=== PATIENT | male | born 1965 | race Caucasian/White ===

== ENCOUNTER 2018-02-25 14:57 | Emergency (ER) | payer OTHER ==
[2018-02-25] MEDS ORDERED: SODIUM CHLORIDE 0.9% 1,000 ML IV STA (15:02)
--- NOTE | 2018-02-25 15:04 | ED ---
General Adult HPI - General Source: RN notes reviewed <Martir Posadas - Last Filed: 02/25/18 15:49> <Ace Llamas - Last Filed: 03/28/18 06:39> - General Stated complaint: Etoh Time Seen by Provider: 02/25/18 14:57 - History of Present Illness Initial comments: This a 52-year-old male who presents emergency department highly intoxicated. EMS was called to scene because the patient was unresponsive at the posterolateral however when they got there patient was alert and oriented 3 but a Phone asleep and so they brought him to the emergency department. Patient has no complaints at this time. Patient states she does have chronic back and chest pain at times. Patient states she's not experiencing any of that right now. Patient wants to go home and continue drinking. Patient states he is not suicidal or homicidal. Patient denies headache patient denies any numbness weakness. Patient denies abdominal pain patient denies nausea vomiting diarrhea. Patient missed a heavy drinking today and admits to having marijuana in his sock. (Martir Posadas) - Related Data Previous Rx's Medication Instructions Recorded Diazepam [Valium] 5 mg PO BID #4 tab 03/11/18 Ipratropium/Albuterol Sulfate 2 puff INHALATION QID #1 inhaler 03/11/18 [Combivent Respimat Inhaler] Naltrexone HCl [Revia] 50 mg PO DAILY #20 tablet 03/11/18 Nicotine 21Mg/24Hr Patch [Habitrol] 1 patch TRANSDERM DAILY #30 patch 03/11/18 Thiamine [Vitamin B-1] 100 mg PO BID@1200,1700 #60 tab 03/11/18 predniSONE 10 mg PO DAILY #30 tab 03/11/18 Allergies Allergy/AdvReac Type Severity Reaction Status Date / Time No Known Allergies Allergy Verified 03/10/18 10:57 Review of Systems ROS Other: All systems not noted in ROS Statement are negative. <Martir Posadas - Last Filed: 02/25/18 15:49> ROS Other: All systems not noted in ROS Statement are negative. <Ace Llamas - Last Filed: 03/28/18 06:39> ROS Statement: Those systems with pertinent positive or pertinent negative responses have been documented in the HPI. Past Medical History Past Medical History: Hyperlipidemia, Hypertension Additional Past Medical History / Comment(s): Depression, alcoholism History of Any Multi-Drug Resistant Organisms: None Reported Past Surgical History: Appendectomy Past Anesthesia/Blood Transfusion Reactions: No Reported Reaction Past Psychological History: Anxiety, Depression, Panic Disorder Smoking Status: Current every day smoker Past Alcohol Use History: Abuse, Daily Past Drug Use History: Marijuana <Martir Posadas - Last Filed: 02/25/18 15:49> General Exam <Martir Posadas - Last Filed: 02/25/18 15:49> <Ace Llamas - Last Filed: 03/28/18 06:39> - General Exam Comments Initial Comments: GENERAL: Patient is well-developed and well-nourished. Patient is nontoxic and well- hydrated and is in no acute distress. ENT: Neck is soft and supple. No significant lymphadenopathy is noted. Oropharynx is clear. Moist mucous membranes. Neck has full range of motion without eliciting any pain. EYES: The sclera were anicteric and conjunctiva were pink and moist. Extraocular movements were intact and pupils were equal round and reactive to light. Eyelids were unremarkable. PULMONARY: Unlabored respirations. Good breath sounds bilaterally. No audible rales rhonchi or wheezing was noted. CARDIOVASCULAR: There is a regular rate and rhythm without any murmurs gallops or rubs. ABDOMEN: Soft and nontender with normal bowel sounds. No palpable organomegaly was noted. There is no palpable pulsatile mass. SKIN: Skin is clear with no lesions or rashes and otherwise unremarkable. NEUROLOGIC: Patient is alert and oriented x3. Cranial nerves II through XII are grossly intact. Motor and sensory are also intact. Normal speech, volume and content. Symmetrical smile. MUSCULOSKELETAL: Normal extremities with adequate strength and full range of motion. LYMPHATICS: No significant lymphadenopathy is noted PSYCHIATRIC: Normal psychiatric evaluation. Patient denies suicidal or homicidal ideations. Patient is uncooperative because he would like to go home. (Martir Posadas) Vital Signs 02/25/18 02/25/18 02/25/18 15:00 16:48 18:03 Temperature 98 F Pulse Rate 99 77 86 Respiratory 20 16 18 Rate Blood Pressure 154/89 100/56 103/57 O2 Sat by Pulse 95 94 L 95 Oximetry 02/25/18 02/25/18 19:13 22:03 Temperature 98 F Pulse Rate 63 84 Respiratory 18 18 Rate Blood Pressure 112/60 120/84 O2 Sat by Pulse 96 98 Oximetry Medical Decision Making - Lab Data Result diagrams: 02/25/18 15:10 <Martir Posadas - Last Filed: 02/25/18 15:49> - Lab Data Result diagrams: 02/25/18 15:10 02/25/18 15:10 <Ace Llamas - Last Filed: 03/28/18 06:39> - Medical Decision Making EKG shows normal sinus rhythm at 85 bpm DE interval is 140 [place] 98 QT interval 356 QTC is 423. Patient's EKG shows no ST segment elevation or depression or T wave abnormalities are noted. Dr. Diaz will be taking care of this patient at 5 PM (Martir Posadas) Patient observed in emergency department until clinically sober. He has tolerated oral intake. Able to ambulate. Denies any suicidal or homicidal ideation or any hallucinations. (Ace Llamas) - Lab Data Lab Results 02/25/18 02/25/18 02/25/18 Range/Units 15:10 15:10 15:10 WBC 8.6 (3.8-10.6) k/uL RBC 4.47 (4.30-5.90) m/uL Hgb 14.2 (13.0-17.5) gm/dL Hct 42.5 (39.0-53.0) % MCV 95.1 (80.0-100.0) fL MCH 31.8 (25.0-35.0) pg MCHC 33.4 (31.0-37.0) g/dL RDW 13.1 (11.5-15.5) % Plt Count 233 (150-450) k/uL Neutrophils % 72 % Lymphocytes % 19 % Monocytes % 5 % Eosinophils % 2 % Basophils % 0 % Neutrophils # 6.1 (1.3-7.7) k/uL Lymphocytes # 1.6 (1.0-4.8) k/uL Monocytes # 0.5 (0-1.0) k/uL Eosinophils # 0.2 (0-0.7) k/uL Basophils # 0.0 (0-0.2) k/uL PT (9.0-12.0) sec INR (<1.2) APTT (22.0-30.0) sec Sodium 144 (137-145) mmol/L Potassium 4.6 (3.5-5.1) mmol/L Chloride 106 (98-107) mmol/L Carbon Dioxide 22 (22-30) mmol/L Anion Gap 16 mmol/L BUN 8 L (9-20) mg/dL Creatinine 0.75 (0.66-1.25) mg/dL Est GFR (CKD-EPI)AfAm >90 (>60 ml/min/1.73 sqM) Est GFR (CKD-EPI)NonAf >90 (>60 ml/min/1.73 sqM) Glucose 95 (74-99) mg/dL Calcium 9.0 (8.4-10.2) mg/dL Magnesium 2.3 (1.6-2.3) mg/dL Total Bilirubin 0.3 (0.2-1.3) mg/dL AST 22 (17-59) U/L ALT 17 L (21-72) U/L Alkaline Phosphatase 67 (38-126) U/L Total Creatine Kinase 91 (55-170) U/L CK-MB (CK-2) 0.6 (0.0-2.4) ng/mL CK-MB (CK-2) Rel Index 0.7 Troponin I <0.012 (0.000-0.034) ng/mL Total Protein 7.1 (6.3-8.2) g/dL Albumin 4.6 (3.5-5.0) g/dL /03/10 Range/Units 15:10 WBC (3.8-10.6) k/uL RBC (4.30-5.90) m/uL Hgb (13.0-17.5) gm/dL Hct (39.0-53.0) % MCV (80.0-100.0) fL MCH (25.0-35.0) pg MCHC (31.0-37.0) g/dL RDW (11.5-15.5) % Plt Count (150-450) k/uL Neutrophils % % Lymphocytes % % Monocytes % % Eosinophils % % Basophils % % Neutrophils # (1.3-7.7) k/uL Lymphocytes # (1.0-4.8) k/uL Monocytes # (0-1.0) k/uL Eosinophils # (0-0.7) k/uL Basophils # (0-0.2) k/uL PT 10.0 (9.0-12.0) sec INR 1.0 (<1.2) APTT 22.9 (22.0-30.0) sec Sodium (137-145) mmol/L Potassium (3.5-5.1) mmol/L Chloride (98-107) mmol/L Carbon Dioxide (22-30) mmol/L Anion Gap mmol/L BUN (9-20) mg/dL Creatinine (0.66-1.25) mg/dL Est GFR (CKD-EPI)AfAm (>60 ml/min/1.73 sqM) Est GFR (CKD-EPI)NonAf (>60 ml/min/1.73 sqM) Glucose (74-99) mg/dL Calcium (8.4-10.2) mg/dL Magnesium (1.6-2.3) mg/dL Total Bilirubin (0.2-1.3) mg/dL AST (17-59) U/L ALT (21-72) U/L Alkaline Phosphatase (38-126) U/L Total Creatine Kinase (55-170) U/L CK-MB (CK-2) (0.0-2.4) ng/mL CK-MB (CK-2) Rel Index Troponin I (0.000-0.034) ng/mL Total Protein (6.3-8.2) g/dL Albumin (3.5-5.0) g/dL Disposition <Martir Posadas - Last Filed: 02/25/18 15:49> Is patient prescribed a controlled substance at d/c from ED?: No <Ace Llamas - Last Filed: 03/28/18 06:39> Clinical Impression: Alcohol intoxication Disposition: HOME SELF-CARE Condition: Good Instructions: Alcohol Dependence (ED) Referrals: None,Stated [Primary Care Provider] - 1-2 days
[2018-02-25 15:07] VITALS: TEMP 98
[2018-02-25 15:21] LABS: Basophils % (A) 0 %; Eosinophils # (A) 0.2 k/uL (0-0.7); Eosinophils % (A) 2 %; HCT 42.5 % (39.0-53.0); HGB 14.2 gm/dL (13.0-17.5); Lymphocytes # (A) 1.6 k/uL (1.0-4.8); Lymphocytes % (A) 19 %; MCH 31.8 pg (25.0-35.0); MCHC 33.4 g/dL (31.0-37.0); MCV 95.1 fL (80.0-100.0); Mean Platelet Volume 8.3; Monocytes # (A) 0.5 k/uL (0-1.0); Monocytes % (A) 5 %; Neutrophils # (A) 6.1 k/uL (1.3-7.7); Neutrophils % (A) 72 %; Platelet Count 233 k/uL (150-450); RBC 4.47 m/uL (4.30-5.90); RDW 13.1 % (11.5-15.5); WBC 8.6 k/uL (3.8-10.6)
[2018-02-25 15:29] LABS: Partial Thromboplastin Time 22.9 sec (22.0-30.0)
[2018-02-25 15:38] LABS: ALT 17 U/L (21-72); AST 22 U/L (17-59); Albumin 4.6 g/dL (3.5-5.0); Alkaline Phosphatase 67 U/L (38-126); Anion Gap 16 mmol/L; Blood Urea Nitrogen 8 mg/dL (9-20); Carbon Dioxide 22 mmol/L (22-30); Chloride 106 mmol/L (98-107); Glucose 95 mg/dL (74-99); Magnesium 2.3 mg/dL (1.6-2.3); Potassium 4.6 mmol/L (3.5-5.1); Sodium 144 mmol/L (137-145); Total Bilirubin 0.3 mg/dL (0.2-1.3); Total Protein 7.1 g/dL (6.3-8.2)
[2018-02-25 15:42] LABS: Creatine Kinase 91 U/L (55-170)
[2018-02-25 15:55] LABS: Creatine Kinase MB 0.6 ng/mL (0.0-2.4); Troponin I <0.012 ng/mL (0.000-0.034)
[2018-02-25 18:04] VITALS: RESP 18
[2018-02-25 22:04] VITALS: BP 120/84; PULSE 84
== END 2018-02-25 22:05 | disposition home or self-care (01) ==
LOC: EC 14:57
DX: F10.129 Alcohol abuse with intoxication, unspecified (principal); G89.29 Other chronic pain; M54.9 Dorsalgia, unspecified; R07.9 Chest pain, unspecified; F17.200 Nicotine dependence, unspecified, uncomplicated
CPT/HCPCS: 36415; 80053; 82550; 82553; 83735; 84484; 85025; 85610; 85730; 93005; 96360; 96361; 99284

== ENCOUNTER 2018-03-10 10:10 | Observation (INO) | payer OTHER ==
[2018-03-10] MEDS ORDERED: ZIPRASIDONE 20 MG VIAL IM STA ×2 (10:20→10:25)
[2018-03-10] MEDS ORDERED: LORazepam 2 MG/ML INJ IM STA (10:20)
[2018-03-10] MEDS ORDERED: LORazepam 2 MG/ML INJ IV STA (10:24)
--- NOTE | 2018-03-10 10:49 | ED ---
General Adult HPI - General Chief complaint: Psychiatric Symptoms Stated complaint: ETOH Time Seen by Provider: 03/10/18 10:18 Source: patient, police, EMS, RN notes reviewed Mode of arrival: EMS Limitations: altered mental status - History of Present Illness Initial comments: Patient is an agitated 52-year-old male presenting to the emergency department with police and fire dispatcher escort secondary to alcohol intoxication and agitation. Patient is combative and does not help provide history. Patient does have a history of previous alcohol problems. - Related Data Home Medications Medication Instructions Recorded Confirmed Unable To Assess [Unable to Assess] 03/10/18 03/10/18 Allergies Allergy/AdvReac Type Severity Reaction Status Date / Time No Known Allergies Allergy Verified 03/10/18 10:57 Review of Systems ROS Statement: Those systems with pertinent positive or pertinent negative responses have been documented in the HPI. ROS Other: All systems not noted in ROS Statement are negative. Limitations: ROS unobtainable due to patients medical condition Past Medical History Past Medical History: Hyperlipidemia, Hypertension Additional Past Medical History / Comment(s): Depression, alcoholism History of Any Multi-Drug Resistant Organisms: None Reported Past Surgical History: Appendectomy Past Anesthesia/Blood Transfusion Reactions: No Reported Reaction Past Psychological History: Anxiety, Depression, Panic Disorder Smoking Status: Current every day smoker Past Alcohol Use History: Abuse, Daily Past Drug Use History: Marijuana General Exam Limitations: altered mental status, physical limitation (Combative) General appearance: alert, appears intoxicated Head exam: Present: atraumatic Eye exam: Present: normal appearance, PERRL ENT exam: Present: normal oropharynx Neck exam: Absent: tenderness Respiratory exam: Present: normal lung sounds bilaterally Cardiovascular Exam: Present: regular rate, normal rhythm GI/Abdominal exam: Present: soft. Absent: tenderness Extremities exam: Present: normal inspection Neurological exam: Present: alert Psychiatric exam: Present: agitated Skin exam: Present: abrasion (Bilateral nonspecific arm abrasions consistent with struggling with handcuffs. There is also old, well-healed horizontal arm abrasions.) Course Vital Signs 03/10/18 03/10/18 03/10/18 10:28 11:23 12:00 Temperature 98.6 F Pulse Rate 108 H 102 H 104 H Respiratory 18 18 18 Rate Blood Pressure 128/66 121/84 121/84 O2 Sat by Pulse 96 99 98 Oximetry 03/10/18 03/10/18 13:00 14:11 Temperature Pulse Rate 87 82 Respiratory 18 16 Rate Blood Pressure 116/75 101/68 O2 Sat by Pulse 99 98 Oximetry Procedures - Restraint - Face to Face Restraint Occurrence 1 Patient's Immediate Situation: Endangers self safety, Endangers others' safety, Endangers staff safety, Violent behavior Patient's Reaction to the Intervention: Angry Patient's Medical & Behavioral Condition: Sleeping Need to Continue or Terminate Restraint or Seclusion: Continue Face to Face Eval of Restraint Date: 03/10/18 Face to Face Eval of Restraint Time: 10:54 Medical Decision Making - Medical Decision Making Patient reevaluated. There was concern of possible suicidal threats on patient arrival. Case was discussed with Dr. gardiner, who will admit for hospital call. - Lab Data Result diagrams: 03/10/18 12:10 03/10/18 12:10 Lab Results 03/10/18 03/10/18 03/10/18 Range/Units 12:10 12:10 12:10 WBC 7.8 (3.8-10.6) k/uL RBC 4.78 (4.30-5.90) m/uL Hgb 15.4 (13.0-17.5) gm/dL Hct 47.2 (39.0-53.0) % MCV 98.8 (80.0-100.0) fL MCH 32.3 (25.0-35.0) pg MCHC 32.7 (31.0-37.0) g/dL RDW 13.5 (11.5-15.5) % Plt Count 190 (150-450) k/uL Neutrophils % 75 % Lymphocytes % 18 % Monocytes % 4 % Eosinophils % 2 % Basophils % 0 % Neutrophils # 5.9 (1.3-7.7) k/uL Lymphocytes # 1.4 (1.0-4.8) k/uL Monocytes # 0.3 (0-1.0) k/uL Eosinophils # 0.1 (0-0.7) k/uL Basophils # 0.0 (0-0.2) k/uL Sodium 147 H (137-145) mmol/L Potassium 4.7 (3.5-5.1) mmol/L Chloride 109 H (98-107) mmol/L Carbon Dioxide 19 L (22-30) mmol/L Anion Gap 19 mmol/L BUN 10 (9-20) mg/dL Creatinine 0.70 (0.66-1.25) mg/dL Est GFR (CKD-EPI)AfAm >90 (>60 ml/min/1.73 sqM) Est GFR (CKD-EPI)NonAf >90 (>60 ml/min/1.73 sqM) Glucose 80 (74-99) mg/dL Calcium 9.0 (8.4-10.2) mg/dL Total Bilirubin 0.3 (0.2-1.3) mg/dL AST 36 (17-59) U/L ALT 31 (21-72) U/L Alkaline Phosphatase 75 (38-126) U/L Total Protein 7.5 (6.3-8.2) g/dL Albumin 4.8 (3.5-5.0) g/dL Urine Color Colorless Urine Appearance Clear (Clear) Urine pH 5.0 (5.0-8.0) Ur Specific [place] 1.003 (1.001-1.035) Urine Protein Trace H (Negative) Urine Glucose (UA) Negative (Negative) Urine Ketones Negative (Negative) Urine Blood Trace H (Negative) Urine Nitrite Negative (Negative) Urine Bilirubin Negative (Negative) Urine Urobilinogen <2.0 (<2.0) mg/dL Ur Leukocyte Esterase Negative (Negative) Urine RBC <1 (0-5) /hpf Urine Opiates Screen Not Detected (NotDetected) Ur Oxycodone Screen Not Detected (NotDetected) Urine Methadone Screen Not Detected (NotDetected) Ur Propoxyphene Screen Not Detected (NotDetected) Ur Barbiturates Screen Not Detected (NotDetected) U Tricyclic Antidepress Not Detected (NotDetected) Ur Phencyclidine Scrn Not Detected (NotDetected) Ur Amphetamines Screen Not Detected (NotDetected) U Methamphetamines Scrn Not Detected (NotDetected) U Benzodiazepines Scrn Not Detected (NotDetected) Urine Cocaine Screen Not Detected (NotDetected) U Marijuana (THC) Screen Not Detected (NotDetected) Serum Alcohol 345 mg/dL Disposition Clinical Impression: Alcohol intoxication, Depression Disposition: ADMITTED IP TO THIS HOSP Is patient prescribed a controlled substance at d/c from ED?: No Referrals: None,Stated [Primary Care Provider] - 1-2 days Decision Time: 14:29
[2018-03-10 12:21] LABS: Basophils % (A) 0 %; Eosinophils # (A) 0.1 k/uL (0-0.7); Eosinophils % (A) 2 %; HCT 47.2 % (39.0-53.0); HGB 15.4 gm/dL (13.0-17.5); Lymphocytes # (A) 1.4 k/uL (1.0-4.8); Lymphocytes % (A) 18 %; MCH 32.3 pg (25.0-35.0); MCHC 32.7 g/dL (31.0-37.0); MCV 98.8 fL (80.0-100.0); Mean Platelet Volume 8.1; Monocytes # (A) 0.3 k/uL (0-1.0); Monocytes % (A) 4 %; Neutrophils # (A) 5.9 k/uL (1.3-7.7); Neutrophils % (A) 75 %; Platelet Count 190 k/uL (150-450); RBC 4.78 m/uL (4.30-5.90); RDW 13.5 % (11.5-15.5); WBC 7.8 k/uL (3.8-10.6)
[2018-03-10 12:22] LABS: Appearance,Urine Clear (Clear); Bilirubin,Urine Negative (Negative); Blood,Urine Trace (Negative); Color,Urine Colorless; Glucose,Urine (UA) Negative (Negative); Ketones,Urine Negative (Negative); Leukocyte Esterase,Urine Negative (Negative); Nitrite,Urine Negative (Negative); Protein,Urine Trace (Negative); RBC,Urine <1 /hpf (0-5); Specific Gravity,Urine 1.003 (1.001-1.035); Urobilinogen,Urine <2.0 mg/dL (<2.0)
[2018-03-10 12:32] LABS: Amphetamine Screen,Urine Not Detected (NotDetected); Barbiturate Screen,Urine Not Detected (NotDetected); Benzodiazepines Screen,Urine Not Detected (NotDetected); Cocaine Screen,Urine Not Detected (NotDetected); Methadone Screen, Urine Not Detected (NotDetected); Opiate Screen,Urine Not Detected (NotDetected); Oxycodone Screen, Urine Not Detected (NotDetected); Phencyclidine Screen,Urine Not Detected (NotDetected); Tricyclic Antidepressant,Urine Not Detected (NotDetected); Urn Cannabinoid Scrn Not Detected (NotDetected)
[2018-03-10 12:41] LABS: ALT 31 U/L (21-72); AST 36 U/L (17-59); Albumin 4.8 g/dL (3.5-5.0); Alkaline Phosphatase 75 U/L (38-126); Anion Gap 19 mmol/L; Blood Urea Nitrogen 10 mg/dL (9-20); Carbon Dioxide 19 mmol/L (22-30); Chloride 109 mmol/L (98-107); Glucose 80 mg/dL (74-99); Potassium 4.7 mmol/L (3.5-5.1); Sodium 147 mmol/L (137-145); Total Bilirubin 0.3 mg/dL (0.2-1.3); Total Protein 7.5 g/dL (6.3-8.2)
[2018-03-10 12:53] LABS: Alcohol 345 mg/dL
[2018-03-10] MEDS ORDERED: THIAMINE 100 MG/ML 2 ML VIAL IM STA (14:31)
[2018-03-10] MEDS ORDERED: NALOXONE 0.4 MG/ML 1 ML VIAL IV PRN ×2 (14:31→23:36)
[2018-03-10] MEDS ORDERED: LORazepam 2 MG/ML INJ IV PRN ×3 (14:31)
[2018-03-10] MEDS: SODIUM CHLORIDE 0.9% 1,000 ML IV SCH (16:07)
[2018-03-10] MEDS: THIAMINE 100 MG TAB PO SCH (17:10)
[2018-03-10] MEDS: DIAZEPAM 5 MG TAB PO SCH ×2 (17:10→21:28)
[2018-03-10] MEDS ORDERED: MAGNESIUM HYDROXIDE 2,400 MG/10 ML CUP PO PRN (23:36)
[2018-03-10] MEDS ORDERED: ONDANSETRON 4 MG/2 ML VIAL IVP PRN (23:36)
[2018-03-10] MEDS ORDERED: ACETAMINOPHEN TAB 325 MG TAB PO PRN (23:36)
[2018-03-10] MEDS ORDERED: LACTULOSE 20 GM/30 ML CUP PO PRN (23:36)
[2018-03-10] MEDS ORDERED: CALCIUM CARBONATE 500 MG CHEWABLE PO PRN (23:36)
[2018-03-11] MEDS: ENOXAPARIN 40 MG/0.4 ML SYRINGE SQ SCH ×2 (00:24→07:52)
[2018-03-11] MEDS: NICOTINE 21MG/24HR PATCH TRANSDERM SCH ×2 (00:24→07:52)
[2018-03-11] MEDS: BUDESONIDE 1 MG/2 ML NEBU INHALATION SCH ×2 (02:35→07:08)
[2018-03-11] MEDS: IPRATROPIUM-ALBUTEROL 3 ML NEB INHALATION SCH ×4 (02:35→14:55)
[2018-03-11 08:05] VITALS: BP 135/72; PULSE 106; RESP 16; TEMP 97.8
[2018-03-11 08:06] LABS: Phosphorus 3.7 mg/dL (2.5-4.5)
[2018-03-11 08:07] LABS: Magnesium 2.3 mg/dL (1.6-2.3)
[2018-03-11] MEDS: DIAZEPAM 5 MG TAB PO SCH ×2 (08:31→15:44)
[2018-03-11 08:40] VITALS: BMI 23.5
[2018-03-11] MEDS ORDERED: guaiFENesin 600 MG TABLET.ER PO SCH (09:00)
--- NOTE | 2018-03-11 10:38 | HP ---
HISTORY AND PHYSICAL DATE OF ADMISSION: 03/10/2018 DATE OF SERVICE: 03/10/2018 PRESENTING COMPLAINT: Found intoxicated. HISTORY OF PRESENTING COMPLAINT: This is a 52-year-old patient no family doctor was found intoxicated with alcohol level of 345, was brought by the police. The patient has got a cough, congested chest. The patient is a smoker. Drinks 30 pack of beer a day. Is a martino by trade. The patient has a history of hypertension and depression, who has not been taking any medications. For DT prophylaxis, patient is put on Valium and CIWA scale. The patient is lethargic, but able to give the history. Has a sitter in the room. Also history of anxiety and depression. The patient denies any suicidal ideation. Appetite is not good. The patient has got some scratch mora on his hand from his work. REVIEW OF SYSTEMS: CONSTITUTIONAL: Tired. HEENT: Nasal stuffiness. RESPIRATORY: Cough, clear sputum. CARDIOVASCULAR: None. GASTROINTESTINAL: None. GENITOURINARY: None. MUSCULOSKELETAL: None. DERMATOLOGICAL: Scratches on both the arms. HEMATOLOGICAL: None. LYMPHATIC: None. PSYCHIATRY: Anxiety, depression. No suicidal NEUROLOGICAL: None. PAST HISTORY: Past history of COPD, hypertension, hyperlipidemia, depression, alcoholism. PAST SURGICAL HISTORY: Appendectomy. SOCIAL HISTORY: Smokes a pack a day and drinks 30 pack beer a day. Martino by trade. FAMILY HISTORY: Patient cannot tell. HOME MEDICATIONS: The patient does not take any medications. ALLERGIES: None. PHYSICAL EXAMINATION: On examination, vital signs on presentation: Temperature 98.6, pulse 108, respiration 18, blood pressure 128/66, pulse ox 96% on room air. GENERAL APPEARANCE: Average build, lying in bed, lethargic, dishevelled. EYES: Pupils equal. Conjunctivae normal. HENT: External appearance of nose and ears are normal. Oral cavity normal. NECK: JVD unable to assess. Mass not palpable. RESPIRATORY: Effort increased. LUNGS: Decreased breath sounds. Prolonged expiration wheezing. CARDIOVASCULAR: First and second sounds normal. No edema. ABDOMEN: Soft, nontender. Liver and spleen not palpable. LYMPHATIC: No lymph node palpable in the neck and axillae. PSYCHIATRY: Patient lethargic, arousable, but answers questions. NEUROLOGICAL: Pupils equal. facial asymmetry. Power and sensation grossly intact. Anxious appearing. INVESTIGATIONS: White count 7.8, hemoglobin 15.4. Potassium 4.7. BUN and creatinine normal. Urine drug screen negative. Serum alcohol 345. ASSESSMENT: 1. Acute alcohol intoxication. 2. Early alcohol withdrawal. 3. Chronic nicotine dependence. 4. Acute chronic obstructive pulmonary disease exacerbation in a current smoker, probably with predominant chronic bronchitis. 5. Essential hypertension. PLAN: Patient on CIWA scale with Ativan. The patient has been put on Valium 5 mg around the day for early alcohol withdrawal. Given a nicotine patch. Given IV fluids. We will check the patient's magnesium, phosphorus, and also being supplemented with thiamine. Lovenox for DVT prophylaxis. The patient has got a sitter for his safety. MMODL / IJN: [id number] /
[2018-03-11] MEDS: THIAMINE 100 MG TAB PO SCH ×2 (11:37→15:44)
--- NOTE | 2018-03-11 13:53 | CONS ---
CONSULTATION DATE OF SERVICE/DICTATION: 03/11/2018 IDENTIFYING DATA: This patient is a 52-year-old single male who was admitted to the 5th floor of the hospital due to alcohol intoxication. I am asked to consult to evaluate for suicidal ideation. HISTORY OF PRESENT ILLNESS: The patient states many times when he gets drunk. He states he is hopeless or has suicidal thoughts. He states he is not suicidal. He reports he has never had a suicide attempt. He does have an alcohol use disorder, but he reports he went to inpatient chemical dependency treatment at [facility] and was sober for 7 weeks after discharge from that facility. He states that last night was his first relapse and that was in the context of his girlfriend breaking up with him. He states they had been together for 2 years and they had irreconcilable differences. He states that he has been going to AA daily. He has a sponsor. We discussed having him start naltrexone to reduce cravings for alcohol and he is agreeable. In fact, he states he did well with Vivitrol for 6 months, but did not want to have the injections. He has been treated for depression and anxiety in the past, but states he does not wish to pursue any psychotropic medications for depression or anxiety. He is endorsing no homicidal thoughts. He is endorsing no auditory visual hallucinations or any specific delusions. No history of hypomanic or manic episodes. He resides with a friend and states there are no firearms in that home. PAST PSYCHIATRIC HISTORY: One prior psychiatric admission to the mental health unit several years ago. No history of suicide attempts. He has been treated with Vivitrol. He has been treated with Zoloft, but did not like how the antidepressant medication made him feel. He states that he needs to change his insurance from [facility] to [facility] and he plans on establishing with a therapist. PAST MEDICAL HISTORY: None reported. ALLERGIES: No known drug allergies. CHEMICAL DEPENDENCY HISTORY: He has a long history of alcohol use disorder. Again, he has been sober for 7 weeks. He reports with the exception of last night's relapse. He has only been in rehab once at [facility]. He does not feel that he needs to return as he was doing well with AA on a daily basis. FAMILY PSYCHIATRIC AND CHEMICAL DEPENDENCY HISTORY: Unknown. SOCIAL HISTORY: The patient is 52 years old. He is single. He recently broke up with his girlfriend of 2 years. 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 He resides with a friend. LEGAL HISTORY: Unknown. ABUSE HISTORY: None reported. STRENGTHS: Willingness to receive treatment, attending AA, willing to seek out outpatient treatment. WEAKNESSES: Alcohol use disorder. INTELLECT: Average. MENTAL STATUS EXAM: The patient is a male appearing his stated age. He is dressed in hospital attire. Eye contact is appropriate. He is pleasant and cooperative during the evaluation. He denies having any suicidal or homicidal ideation, intent, or plan. He is endorsing no hopeless thinking. He feels he has navigated through the crisis of the breakup. He is reporting no auditory visual hallucinations or any specific delusions. There is no observed evidence of psychosis. He demonstrates no tangential thinking, loose associations or flight of ideas. He does not appear hypomanic or manic. He demonstrates no verbal or physical aggressiveness. He demonstrates no abnormal involuntary movements. IMPRESSIONS: Depression, unspecified, rule out major depressive disorder, alcohol use disorder. PLAN: The patient adamantly states he has no suicidal ideation, intent, or plan. He is agreeable to taking naltrexone 50 mg daily to reduce cravings for alcohol. I discussed this with his attending for outpatient use. The patient will continue to follow with AA daily. He is encouraged to establish outpatient counseling once his insurance has changed. There is no imminent safety risk at this time. He is appropriate for transition to outpatient care from a psychiatric perspective. He does not require inpatient psychiatric hospitalization. We will sign off the case at this time. Call with any questions. JAYSONL / IJN: [id number] /
[2018-03-11] MEDS: SODIUM CHLORIDE 0.9% 1,000 ML IV SCH (13:57)
--- NOTE | 2018-03-11 21:14 | DS ---
DISCHARGE SUMMARY DATE OF ADMISSION: March 10, 2018. DATE OF DISCHARGE: March 11, 2018. FINAL DIAGNOSES: 1. Acute alcohol intoxication. 2. Early alcohol withdrawal. 3. Chronic nicotine dependence. 4. Acute chronic obstructive pulmonary disease exacerbation in a current smoker with predominant chronic bronchitis. 5. Essential hypertension. 6. Depression unspecified. HOSPITAL COURSE: This patient presented in an intoxicated state and had alcohol withdrawal. Treated for the same. Seen by Dr. Quintero from Psychiatry. Patient doing much better. Patient is counseled against alcohol and smoking. The patient doing better by the time of discharge. PHYSICAL EXAMINATION: On exam, alert and oriented x3. Patient walking about in the hallways, steady. Lungs decreased breath sounds. Mild wheezing. DISCHARGE MEDICATIONS: 1. Valium 5 mg p.o. b.i.d. for 4 doses. 2. Combivent 2 puffs q.i.d. 3. ReVia DVI 50 mg p.o. daily. 4. Habitrol 1 patch daily. 5. Thiamine 100 mg p.o. b.i.d. 6. Prednisone taper. Follow up with psychiatrist and follow up with Dr. Gonzalez in 3 days. MMODL / IJN: [id number] /
== END 2018-03-11 17:27 | disposition home or self-care (01) ==
LOC: EC 10:10 → 5MS5E 14:32
PROVIDERS: ADMIT Hospitalist; ATTEND Hospitalist
DX: F10.229 Alcohol dependence with intoxication, unspecified (principal); F10.239 Alcohol dependence with withdrawal, unspecified; Y90.8 Blood alcohol level of 240 mg/100 ml or more; J44.1 Chronic obstructive pulmonary disease with (acute) exacerbation; R09.89 Other specified symptoms and signs involving the circulatory and respiratory systems; I10 Essential (primary) hypertension; F32.9 Major depressive disorder, single episode, unspecified; F41.9 Anxiety disorder, unspecified; E78.5 Hyperlipidemia, unspecified; Z91.14 Patient's other noncompliance with medication regimen; F17.210 Nicotine dependence, cigarettes, uncomplicated
CPT/HCPCS: 99285 ×2; 96374 ×2; 96372 ×3; 36415; 80053; 83735; 84100; 85025; 81001; 80306; 80320; G0378 ×2; J2060; J3411; J3486

== ENCOUNTER 2018-05-03 21:30 | Emergency (ER) | payer OTHER ==
--- NOTE | 2018-05-03 22:04 | ED ---
General Adult HPI - General Source: patient Mode of arrival: wheelchair Limitations: no limitations <Roddy Tapia - Last Filed: 05/03/18 22:03> <Barber Cavanaugh - Last Filed: 05/04/18 05:28> - General Chief complaint: Psychiatric Symptoms Stated complaint: suicidal - History of Present Illness Initial comments: Dictation was produced using [employer] dictation software. please excuse any grammatical, word or spelling errors. Chief Complaint: 52-year-old male past medical history of COPD, psychiatric disease, depression presents after suicidal attempt. History of Present Illness: Was that he tried to commit suicide today. He jumped off a bridge into the water. He swam to shore. He states he was trying to drown himself. He was brought in today for suicidal ideation. Patient has no complaints at this time. He states he sees people. He describes that he sees people with their face peeling. Patient has tried to commit suicide in the past. He does have psychiatric history. The ROS documented in this emergency department record has been reviewed and confirmed by me. Those systems with pertinent positive or negative responses have been documented in the HPI. All other systems are other negative and/or noncontributory. (Roddy Tapia) - Related Data Previous Rx's Medication Instructions Recorded Diazepam [Valium] 5 mg PO BID #4 tab 03/11/18 Ipratropium/Albuterol Sulfate 2 puff INHALATION QID #1 inhaler 03/11/18 [Combivent Respimat Inhaler] Naltrexone HCl [Revia] 50 mg PO DAILY #20 tablet 03/11/18 Nicotine 21Mg/24Hr Patch [Habitrol] 1 patch TRANSDERM DAILY #30 patch 03/11/18 Thiamine [Vitamin B-1] 100 mg PO BID@1200,1700 #60 tab 03/11/18 predniSONE 10 mg PO DAILY #30 tab 03/11/18 Allergies Allergy/AdvReac Type Severity Reaction Status Date / Time No Known Allergies Allergy Verified 05/03/18 22:22 Review of Systems ROS Other: All systems not noted in ROS Statement are negative. <Roddy Tapia - Last Filed: 05/03/18 22:03> ROS Other: All systems not noted in ROS Statement are negative. <Barber Cavanaugh - Last Filed: 05/04/18 05:28> ROS Statement: Those systems with pertinent positive or pertinent negative responses have been documented in the HPI. Past Medical History Past Medical History: COPD, Hyperlipidemia, Hypertension Additional Past Medical History / Comment(s): Depression, alcoholism, backpain, edentulous History of Any Multi-Drug Resistant Organisms: None Reported Past Surgical History: Appendectomy Past Anesthesia/Blood Transfusion Reactions: No Reported Reaction Past Psychological History: Anxiety, Depression, Panic Disorder Smoking Status: Current every day smoker Past Alcohol Use History: Abuse, Daily, Heavy Past Drug Use History: Marijuana - Past Family History Father Family Medical History: Unable to Obtain Mother Family Medical History: Unable to Obtain <Roddy Tapia - Last Filed: 05/03/18 22:03> General Exam Limitations: no limitations <Roddy Tapia - Last Filed: 05/03/18 22:03> <Barber Cavanaugh - Last Filed: 05/04/18 05:28> - General Exam Comments Initial Comments: PHYSICAL EXAM: General Impression: Alert and oriented x3, not in acute distress, inebriated, agitated HEENT: Normocephalic atraumatic, extra-ocular movements intact, pupils equal and reactive to light bilaterally, mucous membranes moist. Cardiovascular: Heart regular rate and rhythm, S1&S2 audible, no murmurs, rubs or gallops Chest: Lungs clear to auscultation bilaterally, no rhonchi, no wheeze, no rales Abdomen: Bowel sounds present, abdomen soft, non-tender, non-distended, no organomegaly Musculoskeletal: Pulses present and equal in all extremities, no peripheral edema Motor: Power 5/5 bilaterally, no focal deficits noted Neurological: CN II-XII grossly intact, no focal motor or sensory deficits noted Skin: Intact with no visualized rashes (Roddy Tapia) Vital Signs 05/03/18 05/04/18 05/04/18 21:48 01:57 03:00 Temperature 98.3 F Pulse Rate 110 H Respiratory 18 16 15 Rate Blood Pressure 150/100 O2 Sat by Pulse 98 Oximetry 05/04/18 05/04/18 04:00 04:49 Temperature Pulse Rate Respiratory 16 16 Rate Blood Pressure O2 Sat by Pulse Oximetry Medical Decision Making <Roddy Tapia - Last Filed: 05/03/18 22:03> <Barber Cavanaugh - Last Filed: 05/04/18 05:28> - Medical Decision Making 52-year-old male presents with suicidal attempt. Vital signs shows mild tachycardia 110. Patient admits to drinking alcohol today. He is actively suicidal. Reports suicidal time in the past. Patient is showing signs of active psychosis with visual hallucinations. (Roddy Tapia) Patient presenting with suicidal ideation, suicide attempt, and alcohol intoxication. He is medically cleared by the previous physician, awaiting EPS evaluation. Patient was evaluated by EPS nurse, he states he is not suicidal, he states he jumped from the bridge for fun. He states he had been drinking and does regret this decision. He has no complaints at the time of reevaluation. Denies any suicidal ideation. (Barber Cavanaugh) - Lab Data Lab Results 05/03/18 05/03/18 Range/Units 23:08 23:15 POC Glucose (mg/dL) 106 H (75-99) mg/dL POC Glu Wall Worker ID Bebeto Orourke Urine Opiates Screen Not Detected (NotDetected) Ur Oxycodone Screen Not Detected (NotDetected) Urine Methadone Screen Not Detected (NotDetected) Ur Propoxyphene Screen Not Detected (NotDetected) Ur Barbiturates Screen Not Detected (NotDetected) U Tricyclic Antidepress Not Detected (NotDetected) Ur Phencyclidine Scrn Not Detected (NotDetected) Ur Amphetamines Screen Not Detected (NotDetected) U Methamphetamines Scrn Not Detected (NotDetected) U Benzodiazepines Scrn Not Detected (NotDetected) Urine Cocaine Screen Not Detected (NotDetected) U Marijuana (THC) Screen Not Detected (NotDetected) Disposition <Roddy Tapia - Last Filed: 05/03/18 22:03> Is patient prescribed a controlled substance at d/c from ED?: No Time of Disposition: 05:28 <Barber Cavanaugh - Last Filed: 05/04/18 05:28> Clinical Impression: Depression, Alcohol intoxication Disposition: HOME SELF-CARE Condition: Fair Instructions: Depression (ED), Alcohol Intoxication (ED) Additional Instructions: Please follow up with community mental health. Referrals: None,Stated [Primary Care Provider] - 1-2 days
[2018-05-03 23:09] LABS: Glucose,Whole Blood 106 mg/dL (75-99)
[2018-05-03 23:40] LABS: Amphetamine Screen,Urine Not Detected (NotDetected); Barbiturate Screen,Urine Not Detected (NotDetected); Benzodiazepines Screen,Urine Not Detected (NotDetected); Cocaine Screen,Urine Not Detected (NotDetected); Methadone Screen, Urine Not Detected (NotDetected); Opiate Screen,Urine Not Detected (NotDetected); Oxycodone Screen, Urine Not Detected (NotDetected); Phencyclidine Screen,Urine Not Detected (NotDetected); Tricyclic Antidepressant,Urine Not Detected (NotDetected); Urn Cannabinoid Scrn Not Detected (NotDetected)
[2018-05-04 05:33] VITALS: BP 126/67; PULSE 95; RESP 14; TEMP 97.7
== END 2018-05-04 06:03 | disposition home or self-care (01) ==
LOC: EC 21:30
DX: F32.9 Major depressive disorder, single episode, unspecified (principal); F10.129 Alcohol abuse with intoxication, unspecified; R00.0 Tachycardia, unspecified; F17.200 Nicotine dependence, unspecified, uncomplicated; Y92.89 Other specified places as the place of occurrence of the external cause
CPT/HCPCS: 36415; 80306; 82075; 99285

== ENCOUNTER 2021-07-14 21:20 | Emergency (ER) | payer OTHER ==
[2021-07-14 21:34] VITALS: RESP 18
--- NOTE | 2021-07-14 21:52 | ED ---
Alcohol HPI - General Chief Complaint: Alcohol Stated Complaint: ETOH Time Seen by Provider: 07/14/21 21:24 Source: patient, police, EMS, RN notes reviewed Mode of arrival: EMS Limitations: altered mental status - History of Present Illness Initial Comments: This is a 56-year-old male presents emergency from via EMS with police with chief complaint of alcohol intoxication, fall. Patient had an unwitnessed fall outside. Patient's friend called EMS patient lung to be severely intoxicated she states she drinks heavily daily. Patient does complain of some mild head pain patient was placed in a c-collar by EMS. Patient denies any other associated complaints patient is very drowsy, intoxicated upon evaluation - Related Data Home Medications Medication Instructions Recorded Confirmed Albuterol Sulfate [Proair Hfa] 1 puff INHALATION RT-Q4H PRN 07/14/21 07/14/21 Budesonide/Formoterol Fumarate 2 puff INHALATION RT-BID 07/14/21 07/14/21 [Symbicort 80-4.5 Mcg Inhaler] Venlafaxine HCl [Effexor XR] 75 mg PO DAILY 07/14/21 07/14/21 buPROPion SR [Wellbutrin SR] 100 mg PO BID 07/14/21 07/14/21 busPIRone HCL 15 mg PO BID 07/14/21 07/14/21 Allergies Allergy/AdvReac Type Severity Reaction Status Date / Time No Known Allergies Allergy Verified 05/03/18 22:22 Review of Systems ROS Statement: Those systems with pertinent positive or pertinent negative responses have been documented in the HPI. ROS Other: All systems not noted in ROS Statement are negative. Past Medical History Past Medical History: COPD, Hyperlipidemia, Hypertension Additional Past Medical History / Comment(s): Depression, alcoholism, backpain,edentulous History of Any Multi-Drug Resistant Organisms: None Reported Past Surgical History: Appendectomy Past Anesthesia/Blood Transfusion Reactions: No Reported Reaction Past Psychological History: Anxiety, Depression, Panic Disorder Smoking Status: Current every day smoker Past Alcohol Use History: Abuse, Daily, Heavy Past Drug Use History: Marijuana - Past Family History Father Family Medical History: Unable to Obtain Mother Family Medical History: Unable to Obtain General Exam Limitations: altered mental status General appearance: alert, in no apparent distress, lethargic Head exam: Present: atraumatic, normocephalic, normal inspection Eye exam: Present: normal appearance, PERRL, EOMI. Absent: scleral icterus, conjunctival injection, periorbital swelling ENT exam: Present: normal exam, normal oropharynx, mucous membranes moist Neck exam: Present: normal inspection. Absent: tenderness, meningismus, full ROM (Patient in c-collar), lymphadenopathy Respiratory exam: Present: normal lung sounds bilaterally. Absent: respiratory distress, wheezes, rales, rhonchi, stridor Cardiovascular Exam: Present: regular rate, normal rhythm, normal heart sounds. Absent: systolic murmur, diastolic murmur, rubs, gallop, clicks GI/Abdominal exam: Present: soft, normal bowel sounds. Absent: distended, tend erness, guarding, rebound, rigid Extremities exam: Present: other (Skin tear left arm) Neurological exam: Present: alert, CN II-XII intact. Absent: oriented X3 Skin exam: Present: warm, dry, intact, normal color. Absent: rash Course Vital Signs 07/14/21 21:22 Pulse Rate 89 Respiratory 18 Rate Blood Pressure 130/73 O2 Sat by Pulse 96 Oximetry Medical Decision Making - Medical Decision Making 56-year-old male presented for alcohol intoxication of fall. CT is unremarkable. Labs reveal acute intoxication, mild elevated LFTs. Patient is awake and alert and orientated will be discharged to police custody. - Lab Data Result diagrams: 07/14/21 21:53 07/14/21 21:53 Lab Results 07/14/21 07/14/21 Range/Units 21:53 21:53 WBC 9.2 (3.8-10.6) k/uL RBC 4.98 (4.30-5.90) m/uL Hgb 16.0 (13.0-17.5) gm/dL Hct 47.8 (39.0-53.0) % MCV 96.0 (80.0-100.0) fL MCH 32.0 (25.0-35.0) pg MCHC 33.4 (31.0-37.0) g/dL RDW 12.8 (11.5-15.5) % Plt Count 264 (150-450) k/uL MPV 10.1 Neutrophils % 66 % Lymphocytes % 23 % Monocytes % 6 % Eosinophils % 2 % Basophils % 1 % Neutrophils # 6.0 (1.3-7.7) k/uL Lymphocytes # 2.1 (1.0-4.8) k/uL Monocytes # 0.5 (0-1.0) k/uL Eosinophils # 0.1 (0-0.7) k/uL Basophils # 0.1 (0-0.2) k/uL Sodium 143 (137-145) mmol/L Potassium 4.6 (3.5-5.1) mmol/L Chloride 107 (98-107) mmol/L Carbon Dioxide 23 (22-30) mmol/L Anion Gap 13 mmol/L BUN 8 L (9-20) mg/dL Creatinine 0.86 (0.66-1.25) mg/dL Est GFR (CKD-EPI)AfAm >90 (>60 ml/min/1.73 sqM) Est GFR (CKD-EPI)NonAf >90 (>60 ml/min/1.73 sqM) Glucose 84 (74-99) mg/dL Calcium 9.3 (8.4-10.2) mg/dL Magnesium 2.2 (1.6-2.3) mg/dL Total Bilirubin 0.7 (0.2-1.3) mg/dL AST 149 H (17-59) U/L ALT 145 H (4-49) U/L Alkaline Phosphatase 70 (38-126) U/L Total Protein 7.7 (6.3-8.2) g/dL Albumin 4.7 (3.5-5.0) g/dL Lipase 194 (23-300) U/L Serum Alcohol 280 H* mg/dL Disposition Clinical Impression: Alcohol intoxication, Fall Disposition: HOME SELF-CARE Condition: Stable Instructions (If sedation given, give patient instructions): Alcohol Intoxication (ED) Additional Instructions: Please return to the Emergency Department if symptoms worsen or any other concerns. Is patient prescribed a controlled substance at d/c from ED?: No Referrals: None,Stated [Primary Care Provider] - 1-2 days Time of Disposition: 23:23
[2021-07-14 22:12] LABS: Basophils # (A) 0.1 k/uL (0-0.2); Basophils % (A) 1 %; Eosinophils # (A) 0.1 k/uL (0-0.7); Eosinophils % (A) 2 %; HCT 47.8 % (39.0-53.0); Lymphocytes # (A) 2.1 k/uL (1.0-4.8); Lymphocytes % (A) 23 %; MCHC 33.4 g/dL (31.0-37.0); Mean Platelet Volume 10.1; Monocytes # (A) 0.5 k/uL (0-1.0); Monocytes % (A) 6 %; Neutrophils % (A) 66 %; Platelet Count 264 k/uL (150-450); RBC 4.98 m/uL (4.30-5.90); RDW 12.8 % (11.5-15.5); WBC 9.2 k/uL (3.8-10.6)
[2021-07-14 22:32] LABS: African American GFR (CKD) >90 (>60 ml/min/1.73 sqM); Anion Gap 13 mmol/L; Blood Urea Nitrogen 8 mg/dL (9-20); Carbon Dioxide 23 mmol/L (22-30); Chloride 107 mmol/L (98-107); Glucose 84 mg/dL (74-99); Potassium 4.6 mmol/L (3.5-5.1); Sodium 143 mmol/L (137-145)
[2021-07-14 22:33] LABS: ALT 145 U/L (4-49); AST 149 U/L (17-59); Albumin 4.7 g/dL (3.5-5.0); Alkaline Phosphatase 70 U/L (38-126); Calcium 9.3 mg/dL (8.4-10.2); Lipase 194 U/L (23-300); Magnesium 2.2 mg/dL (1.6-2.3); Non-African American GFR(CKD) >90 (>60 ml/min/1.73 sqM); Total Bilirubin 0.7 mg/dL (0.2-1.3); Total Protein 7.7 g/dL (6.3-8.2)
[2021-07-14 22:49] LABS: Alcohol 280 mg/dL
--- NOTE | 2021-07-14 22:56 | CT ---
EXAMINATION TYPE: CT brain ceceliaine wo con DATE OF EXAM: 07/14/2021 COMPARISON: CT brain 05/04/2015 HISTORY: ETOH, POSSIBLE FALL Headache. Neck pain CT DLP: 1337.2 mGycm Automated exposure control for dose reduction was used. Ventricles have normal size. There is no mass effect nor midline shift. There is no sign of intracran ial hemorrhage. Calvarium is intact. There is fairly normal aeration of the mastoid sinuses. Skull ba se is intact. Cervical vertebra have normal alignment. There is anterior spurring from C4 to C7 and T1. There is mu ltilevel mild disc space narrowing. Posterior elements are intact. There is minimal facet arthropathy . There is narrowing of the disc spaces at C5-6 and C6-7. There is no compression fracture. IMPRESSION: Spondylotic multilevel changes in the cervical spine. No fracture seen. Mild cerebral atrophy. No acute intracranial abnormality. No adverse change compared to old exam.
[2021-07-15 00:33] VITALS: BP 107/63; PULSE 86
== END 2021-07-15 00:53 | disposition home or self-care (01) ==
LOC: EC 21:20
DX: F10.129 Alcohol abuse with intoxication, unspecified (principal); S41.112A Laceration without foreign body of left upper arm, initial encounter; R51.9 Headache, unspecified; J44.9 Chronic obstructive pulmonary disease, unspecified; E78.5 Hyperlipidemia, unspecified; I10 Essential (primary) hypertension; F32.9 Major depressive disorder, single episode, unspecified; F41.9 Anxiety disorder, unspecified; F17.200 Nicotine dependence, unspecified, uncomplicated; F12.90 Cannabis use, unspecified, uncomplicated; Z79.51 Long term (current) use of inhaled steroids; W18.30XA Fall on same level, unspecified, initial encounter; Y90.8 Blood alcohol level of 240 mg/100 ml or more
CPT/HCPCS: 36415; 80053; 83690; 83735; 85025; 72125; 70450; 99284; G0480; 80320

== ENCOUNTER 2021-12-04 19:57 | Emergency (ER) | payer OTHER ==
[2021-12-04 20:28] VITALS: TEMP 98
--- NOTE | 2021-12-04 23:42 | ED ---
General Adult HPI - General Chief complaint: Alcohol Stated complaint: MARIBEL High Time Seen by Provider: 12/04/21 23:15 Source: patient Mode of arrival: wheelchair Limitations: no limitations - History of Present Illness Initial comments: Dictation was produced using [employer] dictation software. please excuse any grammatical, word or spelling errors. Chief Complaint: 56-year-old alcoholic presents emergency department for acute alcoholic intoxication. History of Present Illness: 56-year-old male he is a poor historian. Allegedly patient was brought in to the emergency department for acute alcohol intoxication. Supposedly he was being checked into the rehab facility. He was about to register however they found his blood alcohol level is too high son said he was brought to the emergency department. Patient reports that injuries 12 beers a day. He states that he's never been admitted to the hospital for alcohol withdrawals in the past however he states that he has had severe alcohol withdrawals before. Patient has no other current complaints. The ROS documented in this emergency department record has been reviewed and confirmed by me. Those systems with pertinent positive or negative responses have been documented in the HPI. All other systems are other negative and/or noncontributory. PHYSICAL EXAM: General Impression: Alert and oriented x3, not in acute distress, smells of EtOH HEENT: Normocephalic atraumatic, extra-ocular movements intact, pupils equal and reactive to light bilaterally, mucous membranes moist. Cardiovascular: Heart regular rate and rhythm Chest: Able to complete full sentences, no retractions, no tachypnea Abdomen: abdomen soft, non-tender, non-distended, no organomegaly Musculoskeletal: Pulses present and equal in all extremities, no peripheral edema Motor: no focal deficits noted Neurological: CN II-XII grossly intact, no focal motor or sensory deficits noted Skin: Intact with no visualized rashes Psych: Normal affect and mood ED course: 56-year-old presents emergency department for acute alcohol intoxication. Vital Signs upon arrival are within acceptable limits. Patient observed in emergency department for approximately 11 hours. Reevaluated bedside at 6:00 AM. He is ambulatory with no complications. He is tolerating oral intake is well-appearing. Patient clinically sober. Patient be discharged. EKG interpretation: Ventricular rate 67, sinus rhythm,. 155, QRS 14, QTC 422. No [place] prolongation, no QTC prolongation, no ST or T-wave changes noted. EKG compared to 02/25/2018 showing no changes. Overall, this EKG is unremarkable - Related Data Home Medications Medication Instructions Recorded Confirmed Albuterol Sulfate [Proair Hfa] 1 puff INHALATION RT-Q4H PRN 07/14/21 07/14/21 Budesonide/Formoterol Fumarate 2 puff INHALATION RT-BID 07/14/21 07/14/21 [Symbicort 80-4.5 Mcg Inhaler] Venlafaxine HCl [Effexor XR] 75 mg PO DAILY 07/14/21 07/14/21 buPROPion SR [Wellbutrin SR] 100 mg PO BID 07/14/21 07/14/21 busPIRone HCL 15 mg PO BID 07/14/21 07/14/21 Allergies Allergy/AdvReac Type Severity Reaction Status Date / Time No Known Allergies Allergy Verified 12/04/21 20:23 Review of Systems ROS Statement: Those systems with pertinent positive or pertinent negative responses have been documented in the HPI. ROS Other: All systems not noted in ROS Statement are negative. Past Medical History Past Medical History: COPD, Hyperlipidemia, Hypertension Additional Past Medical History / Comment(s): Depression, alcoholism, b ackpain,edentulous History of Any Multi-Drug Resistant Organisms: None Reported Past Surgical History: Appendectomy Past Anesthesia/Blood Transfusion Reactions: No Reported Reaction Past Psychological History: Anxiety, Depression, Panic Disorder Smoking Status: Current every day smoker Past Alcohol Use History: Abuse, Daily, Heavy Past Drug Use History: Marijuana - Past Family History Father Family Medical History: Unable to Obtain Mother Family Medical History: Unable to Obtain General Exam Limitations: no limitations Course Vital Signs 12/04/21 20:23 Temperature 98.0 F Pulse Rate 71 Respiratory 20 Rate Blood Pressure 98/65 O2 Sat by Pulse 96 Oximetry Medical Decision Making - Lab Data Result diagrams: 12/04/21 23:43 12/04/21 23:43 Lab Results 12/04/21 12/04/21 Range/Units 23:43 23:43 WBC 6.5 (3.8-10.6) k/uL RBC 4.32 (4.30-5.90) m/uL Hgb 14.1 (13.0-17.5) gm/dL Hct 42.5 (39.0-53.0) % MCV 98.2 (80.0-100.0) fL MCH 32.5 (25.0-35.0) pg MCHC 33.1 (31.0-37.0) g/dL RDW 12.5 (11.5-15.5) % Plt Count 216 (150-450) k/uL MPV 8.2 Neutrophils % 55 % Lymphocytes % 34 % Monocytes % 5 % Eosinophils % 3 % Basophils % 1 % Neutrophils # 3.5 (1.3-7.7) k/uL Lymphocytes # 2.2 (1.0-4.8) k/uL Monocytes # 0.3 (0-1.0) k/uL Eosinophils # 0.2 (0-0.7) k/uL Basophils # 0.1 (0-0.2) k/uL Sodium 138 (137-145) mmol/L Potassium 3.7 (3.5-5.1) mmol/L Chloride 106 (98-107) mmol/L Carbon Dioxide 20 L (22-30) mmol/L Anion Gap 12 mmol/L BUN 12 (9-20) mg/dL Creatinine 0.85 (0.66-1.25) mg/dL Est GFR (CKD-EPI)AfAm >90 (>60 ml/min/1.73 sqM) Est GFR (CKD-EPI)NonAf >90 (>60 ml/min/1.73 sqM) Glucose 133 H (74-99) mg/dL Calcium 8.8 (8.4-10.2) mg/dL Magnesium 2.1 (1.6-2.3) mg/dL Total Bilirubin 0.5 (0.2-1.3) mg/dL AST 50 (17-59) U/L ALT 38 (4-49) U/L Alkaline Phosphatase 58 (38-126) U/L Total Protein 7.5 (6.3-8.2) g/dL Albumin 4.4 (3.5-5.0) g/dL Serum Alcohol 196 mg/dL Disposition Clinical Impression: Alcohol intoxication Disposition: HOME SELF-CARE Condition: Good Instructions (If sedation given, give patient instructions): Alcohol Intoxication (ED) Is patient prescribed a controlled substance at d/c from ED?: No Referrals: None,Stated [Primary Care Provider] - 1-2 days
[2021-12-04 23:57] LABS: Basophils # (A) 0.1 k/uL (0-0.2); Basophils % (A) 1 %; Eosinophils # (A) 0.2 k/uL (0-0.7); Eosinophils % (A) 3 %; HCT 42.5 % (39.0-53.0); HGB 14.1 gm/dL (13.0-17.5); Lymphocytes # (A) 2.2 k/uL (1.0-4.8); Lymphocytes % (A) 34 %; MCH 32.5 pg (25.0-35.0); MCHC 33.1 g/dL (31.0-37.0); MCV 98.2 fL (80.0-100.0); Mean Platelet Volume 8.2; Monocytes # (A) 0.3 k/uL (0-1.0); Monocytes % (A) 5 %; Neutrophils # (A) 3.5 k/uL (1.3-7.7); Neutrophils % (A) 55 %; Platelet Count 216 k/uL (150-450); RBC 4.32 m/uL (4.30-5.90); RDW 12.5 % (11.5-15.5); WBC 6.5 k/uL (3.8-10.6)
[2021-12-05 00:09] LABS: ALT 38 U/L (4-49); AST 50 U/L (17-59); African American GFR (CKD) >90 (>60 ml/min/1.73 sqM); Albumin 4.4 g/dL (3.5-5.0); Alkaline Phosphatase 58 U/L (38-126); Anion Gap 12 mmol/L; Blood Urea Nitrogen 12 mg/dL (9-20); Calcium 8.8 mg/dL (8.4-10.2); Carbon Dioxide 20 mmol/L (22-30); Chloride 106 mmol/L (98-107); Glucose 133 mg/dL (74-99); Magnesium 2.1 mg/dL (1.6-2.3); Non-African American GFR(CKD) >90 (>60 ml/min/1.73 sqM); Potassium 3.7 mmol/L (3.5-5.1); Sodium 138 mmol/L (137-145); Total Bilirubin 0.5 mg/dL (0.2-1.3); Total Protein 7.5 g/dL (6.3-8.2)
[2021-12-05 00:14] LABS: Alcohol 196 mg/dL
[2021-12-05 06:20] VITALS: BP 123/84; PULSE 87; RESP 18
== END 2021-12-05 06:24 | disposition home or self-care (01) ==
LOC: EC 19:57
DX: F10.129 Alcohol abuse with intoxication, unspecified (principal); I10 Essential (primary) hypertension; J44.9 Chronic obstructive pulmonary disease, unspecified; E78.5 Hyperlipidemia, unspecified; F32.A Depression, unspecified; F41.9 Anxiety disorder, unspecified; F17.200 Nicotine dependence, unspecified, uncomplicated; F12.90 Cannabis use, unspecified, uncomplicated; Z79.51 Long term (current) use of inhaled steroids; Z79.899 Other long term (current) drug therapy; Y90.6 Blood alcohol level of 120-199 mg/100 ml
CPT/HCPCS: 36415; 93005; 80053; 83735; 85025; 99284; G0480; 80320

== ENCOUNTER 2021-12-05 15:08 | Inpatient (IN) | payer MEDICAID, OTHER ==
[2021-12-05] MEDS ORDERED: HALOPERIDOL LACTATE 5 MG/ML 1 ML VIAL IM PRN (18:15)
[2021-12-05] MEDS ORDERED: MAGNESIUM HYDROXIDE 2,400 MG/10 ML CUP PO PRN (18:15)
[2021-12-05] MEDS ORDERED: LORazepam 1 MG TAB PO PRN (18:15)
[2021-12-05] MEDS ORDERED: MAG HYDROX/AL HYDROX/SIMETH 30 ML CUP PO PRN (18:15)
[2021-12-05] MEDS ORDERED: LORazepam 2 MG/ML INJ IM PRN (18:21)
[2021-12-05] MEDS ORDERED: ALBUTEROL INHALER 60 PUFF/8 GM INHALER (MHU) INHALATION PRN (19:42)
--- NOTE | 2021-12-05 22:07 | P.PN ---
Progress Note - Text Progress Note Date: 12/05/21 Patient refused to be seen or evaluated.
--- NOTE | 2021-12-05 23:21 | ED ---
Psych HPI - General Chief Complaint: Psychiatric Symptoms Stated Complaint: mental health Source: patient Mode of arrival: ambulatory - History of Present Illness Initial Comments: 56-year-old male presents to the emergency department with depression and suicidal thoughts. He states he's been depressed his whole life however his symptoms have been worse over the past few days. He lives with friends, does not have a consistent job. Admits to alcohol use however has not been drinking today. Has a plan to kill himself however does not want to talk about it. No homicidal ideations. Denies any IV drug use. No other alleviating, precipitating or modifying factors - Related Data Home Medications Medication Instructions Recorded Confirmed Albuterol Sulfate [Proair Hfa] 1 puff INHALATION RT-Q4H PRN 07/14/21 12/05/21 Venlafaxine HCl [Effexor XR] 75 mg PO DAILY 07/14/21 12/05/21 buPROPion SR [Wellbutrin SR] 100 mg PO BID 07/14/21 12/05/21 busPIRone HCL 15 mg PO BID 07/14/21 12/05/21 Nicotine 14Mg/24Hr Patch [Habitrol 1 patch TRANSDERM DAILY PRN 12/05/21 12/05/21 14Mg/24Hr Patch] Allergies Allergy/AdvReac Type Severity Reaction Status Date / Time No Known Allergies Allergy Verified 12/05/21 19:41 Review of Systems ROS Statement: Those systems with pertinent positive or pertinent negative responses have been documented in the HPI. ROS Other: All systems not noted in ROS Statement are negative. Past Medical History Past Medical History: COPD, Hyperlipidemia, Hypertension Additional Past Medical History / Comment(s): Depression, alcoholism, backpain,edentulous History of Any Multi-Drug Resistant Organisms: None Reported Past Surgical History: Appendectomy Past Anesthesia/Blood Transfusion Reactions: No Reported Reaction Past Psychological History: Anxiety, Depression, Panic Disorder Smoking Status: Current every day smoker Past Alcohol Use History: Abuse, Daily, Heavy Additional Past Alcohol Use History / Comment(s): unable to obtain from pt how often or amount he drinks Past Drug Use History: Marijuana Additional Drug Use History / Comment(s): unable to obtain if pt still uses marijuana - Past Family History Father Family Medical History: Unable to Obtain Mother Family Medical History: Unable to Obtain General Exam Limitations: no limitations Course Vital Signs 12/05/21 15:53 Temperature 98.2 F Pulse Rate 89 Respiratory 18 Rate Blood Pressure 142/84 O2 Sat by Pulse 97 Oximetry Medical Decision Making - Medical Decision Making Upon arrival the patient is placed into room 13. Thorough history and physical evaluation is performed. Patient's over at this time. Covid test is obtained. He is evaluated by a cath who recommends admission. Patient did sign himself in voluntarily. He was taken to the floor in stable condition - Lab Data Lab Results 12/05/21 Range/Units 17:26 Coronavirus (PCR) Not Detected (Not Detectd)
[2021-12-06] MEDS: NICOTINE 14MG/24HR PATCH TRANSDERM SCH (09:08)
--- NOTE | 2021-12-06 10:32 | P.HP ---
Psychiatric H&P - . H&P Date: 12/06/21 History & Physical: Allergies Allergy/AdvReac Type Severity Reaction Status Date / Time No Known Allergies Allergy Verified 12/05/21 19:41 Vital Signs Temp 98.4 F 12/05/21 19:00 Pulse 72 12/05/21 19:00 Resp 16 12/05/21 19:00 BP 125/75 12/05/21 19:00 Pulse Ox 97 12/05/21 15:53 Intake & Output 12/05/21 12/06/21 12/06/21 18:59 06:59 18:59 Weight 72.575 kg 72.575 kg 66.5 kg Laboratory Last Values Coronavirus (PCR) Not Detected (Not Detectd) 12/05/21 17:26 12/06/21 10:25 Psychiatric assessment: This is a getting evaluation on Maryann Scales who is a 56-year-old male and who states that he has been very depressed and suicidal Patient states that he is being his several times and that this is his fifth or sixth hospitalization Patient stated that he has been homeless for 15 years and has been living in the [facility] Patient states that he's been having thoughts of wanting to kill himself but did not give any specifics or any plans Patient states that he occasionally drinks but at one time he did have alcohol problem He says that he sometimes has auditory hallucinations When asked about any previous suicide attempts patient reported reports that he had taken an overdose with pills but did not get any specifics He says that he does take some medications but does not know them Chart reveals that the patient is on buspirone effects or and Wellbutrin Past history personal and social history Patient remains a very poor historian patient seems to be point to stay in bed and mostly gives flippant answers According to the chart and ER examination patient is also on albuterol An nicotine patch Patient reports to having problems with alcohol but states that he now drinks socially Patient however comes across as unreliable historian Patient did not give any specifics about his personal life or work history Patient is currently homeless as described above He did not give any specifics about his previous psychiatric treatment follow- ups with any local mental Health Center or psychiatrist or PCP Mental status examination reveals a middle-aged male who presents a very disheveled appearance with long sandoval and unkept appearance Patient's hygiene is poor Affect at this time remains flat Speech is of regular rate and rhythm Thought processes are goal-directed sequential and logical although impoverished Patient admits to auditory or visual hallucinations although this seems little questionable with this flippant answers and tendency to respond with exaggeration Patient's insight into his problems appears to be poor Problem solving ability and self-esteem and confidence are low Cognitively appears to be intact Plan: 1 the patient meets the criteria for hospitalization on the psychiatric unit to improve his coping skills and for psychiatric stabilization 2 patient will also participate in on the [facility] activities and milieu treatment 3 will continue his home meds as prescribed 4 approximate the stay would be 3-5 days 5 clinical social worker will per 's supervision care regarding appropriate placement and referral to substance use programs etc. Chris Davis M.D. 12/06/21
[2021-12-06] MEDS: VENLAFAXINE HCL 75 MG TAB PO SCH (21:18)
[2021-12-06] MEDS: busPIRone HCl 5 MG TAB PO SCH (21:18)
--- NOTE | 2021-12-06 22:44 | P.CONS ---
History of Present Illness - Reason for Consult Consult date: 12/06/21 - History of Present Illness Patient is a 56-year-old male with a PMH of tobacco abuse, hyperlipidemia, and COPD who presented to the emergency room with complaints of depression and suicidal ideation. The patient was admitted to the mental health unit where he was seen and evaluated. The patient reports that he has been struggling with depression for most of his life and that it has recently worsened. He reports poor quality of life, being unemployed and having poor social condition. He denied any specific plan as to how to harm himself but reports that he has a significant family history of depression with multiple family members who by suicide. He denied any physical complaints at the time of interview. He denied chest discomfort or shortness of breath over, chills, cough, nausea, vomiting, abdominal pain, diarrhea. He reports smoking 1 pack of cigarettes daily Review of systems: Pertinent positives and negatives as discussed in HPI, a complete review of systems was performed and all other systems are negative. Physical examination: General: non toxic, no distress, appears older than stated age, normal weight Derm: no unusual rashes/lesions no unusual ecchymoses, warm, dry Head: atraumatic, normocephalic, symmetric Eyes: EOMI, no lid lag, anicteric sclera, pupils equal round reactive to light ENT: Nose and ears atraumatic, no thrush, no pharyngeal erythema Neck: No thyromegaly, no cervical lymphadenopathy, trachea midline, supple Mouth: no lip lesion, mucus membranes moist Cardiovascular: S1S2 reg, no murmur, positive posterior tibial pulse bilateral, no edema, capillary refill less than 2 seconds Lungs: CTA bilateral, no rhonchi, no rales , no accessory muscle use Abdominal: soft, nontender to palpation, no guarding, no appreciable organomegaly, normal bowel sounds Ext: no gross muscle atrophy, muscle strength 5 out of 5 in all 4 extremities grossly, no contractures, Neuro: CN II-XI grossly intact, light touch intact all 4 extremities, finger to nose within normal limits, Psych: Alert, oriented, depressed affect Assessment/plan COPD, not in acute exacerbation -Albuterol when necessary Tobacco abuse -Advised on importance of cessation Depression and suicidal ideation -As per psychiatry Thank you for allowing us to participate in the care of this patient. We will follow peripherally. Do not hesitate to contact us with questions. Someone can be reached from the [facility] hospitalist group at all hours of the day at [phone]. Past Medical History Past Medical History: COPD, Hyperlipidemia, Hypertension Additional Past Medical History / Comment(s): Depression, alcoholism, backpain,edentulous History of Any Multi-Drug Resistant Organisms: None Reported Past Surgical History: Appendectomy Past Anesthesia/Blood Transfusion Reactions: No Reported Reaction Past Psychological History: Anxiety, Depression, Panic Disorder Smoking Status: Current every day smoker Past Alcohol Use History: Abuse, Daily, Heavy Additional Past Alcohol Use History / Comment(s): unable to obtain from pt how often or amount he drinks Past Drug Use History: Marijuana Additional Drug Use History / Comment(s): unable to obtain if pt still uses marijuana - Past Family History Father Family Medical History: Unable to Obtain Mother Family Medical History: Unable to Obtain Medications and Allergies Home Medications Medication Instructions Recorded Confirmed Type Albuterol Sulfate [Proair Hfa] 1 puff INHALATION RT-Q4H PRN 07/14/21 12/05/21 History Venlafaxine HCl [Effexor XR] 75 mg PO DAILY 07/14/21 12/05/21 History buPROPion SR [Wellbutrin SR] 100 mg PO BID 07/14/21 12/05/21 History busPIRone HCL 15 mg PO BID 07/14/21 12/05/21 History Nicotine 14Mg/24Hr Patch [Habitrol 1 patch TRANSDERM DAILY PRN 12/05/21 12/05/21 History 14Mg/24Hr Patch] Allergies Allergy/AdvReac Type Severity Reaction Status Date / Time No Known Allergies Allergy Verified 12/05/21 19:41 Physical Exam Vitals: Intake and Output 12/06/21 12/06/21 12/06/21 06:59 14:59 22:59 Other: Weight 66.5 kg
[2021-12-07] MEDS: VENLAFAXINE HCL 75 MG TAB PO SCH (09:06)
[2021-12-07] MEDS: busPIRone HCl 5 MG TAB PO SCH (09:06)
[2021-12-07] MEDS: NICOTINE 14MG/24HR PATCH TRANSDERM SCH (09:06)
--- NOTE | 2021-12-07 12:08 | P.PN ---
Progress Note - Text Progress Note Date: 12/07/21 Interval History: Patient was seen lying in his bed this morning and was directable and agreeable to speak with underwriter in the office. Patient claims that she is still feeling depressed and anxious. He claims that this has been going on for several months now or even years. He states that he feels the Effexor and the BuSpar has not been helping him at their current dose. He was agreeable to want to try another medication and was agreeable to try Cymbalta as she was also complaining of cyndie n. She states that there is too family members that he knows that if committed suicide by gun and states that he is still having suicidal thoughts about that to purchase a gun however does not have any current plan to harm himself in the hospital. He states that his sleep has been poor and appetite has been poor. At this time patient denies any homical ideations, intent or plan. Patient denies a ny auditory, visual hallucinations and denies any paranoia or delusions. Patient denies any side effects from the medications and has been compliant with meds. Mental Status Exam: General Appearance: Patient appears to be thin, disheveled hair, stated age is alert, directable, and attempts to be cooperative. Behavior: Patient is calmly seated without any agitated behavior. Tearful at times. Speech: Patient's speech is fluent and nonpressured. Soft tone. [place]. Mood/Affect: Mood is improving mildly, affect is congruent and constricted. Suicidality/Homicidality: Patient denies having any suicidal or homicidal ideation intent or plan. Perceptions: Patient denies any visual hallucinations and denies any auditory hallucinations Though content/process: [place]. Not endorsing any delusions. Focused on his symptoms and depression. Memory and concentration: AOX3, grossly intact for the purposes of this session Judgment and insight: Improving mildly Assessment Major depressive disorder, recurrent, severe without psychotic features Cannabis use disorder mild Nicotine dependence Plan: -Patient continues to meet criteria for inpatient psychiatric admission for symptom stabilization and safety. Patient has signed adult voluntary form and medication consent and was placed in patient's chart. -Medications: Discontinued Effexor. Start Cymbalta 30 mg daily for mood/anxiety/pain. Increase BuSpar to 20 mg twice a day for anxiety. Start Remeron 15 mg daily at bedtime for insomnia/appetite/mood. -When necessary Ativan and Haldol for agitation/aggression. -NRT - nicotine patch -SW on board for discharge planning. Encouraged the patient to participate in milieu.
[2021-12-07 12:38] LABS: Estimated Average Glucose UNC
[2021-12-07] MEDS: DULoxetine HCL 30 MG CAPSULE.DR PO SCH (12:51)
[2021-12-07 15:56] LABS: Chol/HDL Ratio 2.23 Ratio; LDL Cholesterol,Calculated 80.9 mg/dL (0.0-131.0); VLDL Calculation 17.38 mg/dL (5.00-40.00)
[2021-12-07] MEDS: ACETAMINOPHEN TAB 325 MG TAB PO PRN (17:39)
[2021-12-07] MEDS: busPIRone HCl 10 MG TAB PO SCH (20:53)
[2021-12-07] MEDS ORDERED: MIRTAZAPINE 15 MG TAB PO SCH (21:00)
[2021-12-08] MEDS: busPIRone HCl 10 MG TAB PO SCH ×3 (08:26→21:24)
[2021-12-08] MEDS: DULoxetine HCL 30 MG CAPSULE.DR PO SCH (08:26)
[2021-12-08] MEDS: NICOTINE 14MG/24HR PATCH TRANSDERM SCH (08:26)
--- NOTE | 2021-12-08 10:31 | P.PN ---
Progress Note - Text Progress Note Date: 12/08/21 Interval History: Patient was seen lying in his bed this morning and was directable and agreeable to speak with technical document writer in the office. Patient continues to state that he is feeling depressed and anxious. He claims that he feels mild improvement since yesterday with the medications and is willing to continue with treatment. He states that "I just want to get better". He claims that he did not sleep well at all last night with the Remeron. He states that he has been hearing voices telling him to harm himself and "talking to me a lot". He states that he misses his family and "wants to be with them". He states that he has a fair appetite. He has not gone to many groups however was encouraged to do so today. He continues to have passive suicidal thoughts however no intent or plan. At this time patient denies any homical ideations, intent or plan. Patient denies any visual hallucinations and denies any paranoia or delusions. Patient denies any side effects from the medications and has been compliant with meds. Mental Status Exam: General Appearance: Patient appears to be thin, disheveled hair, stated age is alert, directable, and attempts to be cooperative. Behavior: Patient is calmly seated without any agitated behavior. Not tearful today Speech: Patient's speech is fluent and nonpressured. Soft tone. [place] Mood/Affect: Mood is depressed and anxious, affect is congruent and constricted. Suicidality/Homicidality: Patient denies having any suicidal or homicidal ideation intent or plan. Perceptions: Patient denies any visual hallucinations and denies any auditory hallucinations Though content/process: [place]. Not endorsing any delusions. Focused on his symptoms and depression. Memory and concentration: AOX3, grossly intact for the purposes of this session Judgment and insight: Improving mildly Assessment Major depressive disorder, recurrent, severe with psychotic features Cannabis use disorder mild Nicotine dependence Plan: -Patient continues to meet criteria for inpatient psychiatric admission for symptom stabilization and safety. Patient has signed adult voluntary form and medication consent and was placed in patient's chart. -Medications: Increase Cymbalta 60 mg daily for mood/anxiety/pain. Increase BuSpar to 20 mg TID for anxiety. d/c Remeron and replaced with Seroquel 50 mg daily at bedtime for mood stabilization/insomnia. -When necessary Ativan and Haldol for agitation/aggression. -NRT - nicotine patch -SW on board for discharge planning. Encouraged the patient to participate in milieu. likely discharge in 1-2 days.
[2021-12-08] MEDS: ALBUTEROL INHALER 60 PUFF/8 GM INHALER (MHU) INHALATION PRN (10:56)
[2021-12-08] MEDS ORDERED: QUEtiapine 50 MG TAB PO SCH (21:00)
[2021-12-09] MEDS: busPIRone HCl 10 MG TAB PO SCH ×5 (08:30→21:37)
[2021-12-09] MEDS: NICOTINE 14MG/24HR PATCH TRANSDERM SCH ×3 (08:30→12:06)
[2021-12-09] MEDS: DULoxetine HCL 60 MG CAPSULE.DR PO SCH ×3 (08:31→12:05)
[2021-12-09] MEDS ORDERED: QUEtiapine 25 MG TAB PO PRN (08:42)
--- NOTE | 2021-12-09 08:46 | P.PN ---
Progress Note - Text Progress Note Date: 12/09/21 Interval History: Patient was seen wandering the hallways this morning and was directable and ag reeable to speak with physician underwriter in the office. Patient appears to be mildly improved. In terms of his depression. He states that he feels a bit less anxious today. He claims that he did take a Haldol when necessary yesterday morning for anxiety. He states that he slept a little bit better however still only getting about 3-4 hours of sleep. He was agreeable to have his Seroquel increased. He asked questions about his medications. He appeared to be more future oriented today and claims that he was going to go to groups. He states that he has a fair appetite. He has been showering. He claims that today he has not been having any suicidal thoughts which is his first day. At this time patient denies any homical ideations, intent or plan. Patient denies any visual hallucinations and denies any paranoia or delusions. Patient denies any side effects from the medications and has been compliant with meds. Appears to have improvement in hygiene and grooming today. Mental Status Exam: General Appearance: Patient appears to be thin, disheveled hair, stated age is alert, directable, and attempts to be cooperative. Behavior: Patient is calmly seated without any agitated behavior. More cooperative today. Speech: Patient's speech is fluent and nonpressured. Soft tone. [place] Mood/Affect: Mood is depressed and anxious, improving mildly, affect is congruent and constricted. Suicidality/Homicidality: Patient denies having any suicidal or homicidal ideation intent or plan. Perceptions: Patient denies any visual hallucinations and denies any auditory hallucinations Though content/process: [place]. Not endorsing any delusions. More future oriented today. Memory and concentration: AOX3, grossly intact for the purposes of this session Judgment and insight: Improving mildly Assessment Major depressive disorder, recurrent, severe with psychotic features Cannabis use disorder mild Nicotine dependence Plan: -Patient continues to meet criteria for inpatient psychiatric admission for symptom stabilization and safety. Patient has signed adult voluntary form and medication consent and was placed in patient's chart. -Medications: Cymbalta 60 mg daily for mood/anxiety/pain. BuSpar to 20 mg TID for anxiety. Increased Seroquel 100 mg daily at bedtime for mood stabilization/insomnia and added 25 mg twice a day when necessary for anxiety. -When necessary Ativan and Haldol for agitation/aggression. -NRT - nicotine patch -SW on board for discharge planning. Encouraged the patient to participate in milieu. likely discharge tomorrow or the next day if patient is improving.
[2021-12-09] MEDS: ALBUTEROL INHALER 60 PUFF/8 GM INHALER (MHU) INHALATION PRN ×2 (12:06→19:30)
[2021-12-09] MEDS: ACETAMINOPHEN TAB 325 MG TAB PO PRN ×2 (13:37→19:31)
[2021-12-09] MEDS ORDERED: QUEtiapine 100 MG TAB PO SCH (21:00)
[2021-12-10 06:49] VITALS: BP 119/63; PULSE 63; RESP 14; TEMP 97.3
[2021-12-10] MEDS: NICOTINE 14MG/24HR PATCH TRANSDERM SCH (08:45)
[2021-12-10] MEDS: busPIRone HCl 10 MG TAB PO SCH ×2 (08:46→15:55)
[2021-12-10] MEDS: DULoxetine HCL 60 MG CAPSULE.DR PO SCH (08:46)
[2021-12-10] MEDS: ACETAMINOPHEN TAB 325 MG TAB PO PRN (08:50)
--- NOTE | 2021-12-10 14:07 | P.DS ---
Providers Date of admission: 12/05/21 18:08 Attending physician: Victor M Mckoy MD Consults: 12/05/21 18:15 Consult Physician Routine Consulting Provider: Ammy Physician Consult Reason/Comments: medical management Do you want consulting provider notified?: Yes Primary care physician: Stated None Hospital Course: Discharge diagnosis Major depressive disorder, recurrent, severe with psychotic features Cannabis use disorder mild Nicotine dependence He has been followed by Dr. Perla Henderson since his hospitalization. His medication was adjusted with resolution of his psychotic symptoms. He was started on seroquel 100 mg po qhs and 25 mg po qam and 25 mg po qpm HE was continued on Buspar 20 mg po tid and cymbalta 60 mg po od. His progress was discussed at team meeting. The last progress note from Dr. Perla Henderson showed he continued to improve. He no longer required inpatient hospitalization Discharge today and package was prepared Plan - Discharge Summary Discharge Rx Participant: No New Discharge Prescriptions: New busPIRone HCl [Buspar] 20 mg PO TID 30 Days tab DULoxetine HCL [Cymbalta] 60 mg PO DAILY 30 Days QUEtiapine [SEROquel] 100 mg PO HS 30 Days tab Continue buPROPion SR [Wellbutrin SR] 100 mg PO BID Nicotine 14Mg/24Hr Patch [Habitrol] 1 patch TRANSDERM DAILY PRN PRN Reason: Nicotine Cravings Albuterol Sulfate [Proair Hfa] 1 puff INHALATION RT-Q4H PRN PRN Reason: Shortness Of Breath busPIRone HCL 15 mg PO BID Venlafaxine HCl [Effexor XR] 75 mg PO DAILY Discharge Medication List Albuterol Sulfate [Proair Hfa] 1 puff INHALATION RT-Q4H PRN 07/14/21 [History] Venlafaxine HCl [Effexor XR] 75 mg PO DAILY 07/14/21 [History] buPROPion SR [Wellbutrin SR] 100 mg PO BID 07/14/21 [History] busPIRone HCL 15 mg PO BID 07/14/21 [History] Nicotine 14Mg/24Hr Patch [Habitrol] 1 patch TRANSDERM DAILY PRN 12/05/21 [History] DULoxetine HCL [Cymbalta] 60 mg PO DAILY 30 Days 12/10/21 [Rx] QUEtiapine [SEROquel] 100 mg PO HS 30 Days tab 12/10/21 [Rx] busPIRone HCl [Buspar] 20 mg PO TID 30 Days tab 12/10/21 [Rx] Follow up Appointment(s)/Referral(s): [facility] [Outside] - 12/15/21 3:00 pm (12-15-21 at 3:00 with Elizabeth Powers 12-22-21 at 12:30 with KULWANT Miles 12-29-21 at 9:[address] Ruelas (psych eval)) [facility] [NON-STAFF] - 1 Week Patient Instructions/Handouts: How to Stop Smoking (DC), Depression (DC) Activity/Diet/Wound Care/Special Instructions: Activity and diet as tolerated. Avoid the use of street drugs and alcohol. Take all medications as prescribed. When you are in need of refills on your medications please contact your medical provider and/or outpatient psychiatrist to have this done. Please go to scheduled outpatient appointment for aftercare treatment. If symptoms return or become worse, call the crisis line at and/or go to the nearest emergency room for evaluation Discharge Disposition: HOME SELF-CARE
== END 2021-12-10 16:17 | disposition home or self-care (01) | DRG 885 ==
LOC: EC 15:08 → 3MHU 18:08
PROVIDERS: ADMIT Psychiatry & Neurology Psychiatry; ATTEND Psychiatry & Neurology Psychiatry
DX: F33.3 Major depressive disorder, recurrent, severe with psychotic symptoms (principal); R45.851 Suicidal ideations; E78.5 Hyperlipidemia, unspecified; F12.10 Cannabis abuse, uncomplicated; F17.210 Nicotine dependence, cigarettes, uncomplicated; Z71.6 Tobacco abuse counseling; F41.0 Panic disorder [episodic paroxysmal anxiety]; I10 Essential (primary) hypertension; J44.9 Chronic obstructive pulmonary disease, unspecified; Z20.822 Contact with and (suspected) exposure to COVID-19; Z79.899 Other long term (current) drug therapy; Z81.8 Family history of other mental and behavioral disorders; Z90.49 Acquired absence of other specified parts of digestive tract; Z56.0 Unemployment, unspecified; Z59.01 Sheltered homelessness
CPT/HCPCS: 80061; 82075; 83036; 84443; 87635; 99285

== ENCOUNTER 2021-12-11 12:25 | Inpatient (IN) | payer MEDICAID, OTHER ==
--- NOTE | 2021-12-11 12:50 | ED ---
Psych HPI - General Chief Complaint: Psychiatric Symptoms Stated Complaint: revisit - EPS eval Time Seen by Provider: 12/11/21 12:35 Source: patient Mode of arrival: ambulatory - History of Present Illness Initial Comments: 56-year-old male history of alcohol abuse as well as major depression who was actually discharged yesterday from the psychiatric unit who is back today comp laining of feeling suicidal. He states he would shoot himself with his 22 pistol. He does state however he is not sure where a dislocated right now. He is feels very depressed. He denies any fevers chills nausea vomiting sweats or other symptoms. MD Complaint: suicidal ideation - Related Data Home Medications Medication Instructions Recorded Confirmed Albuterol Sulfate [Proair Hfa] 1 puff INHALATION RT-Q4H PRN 07/14/21 12/11/21 Venlafaxine HCl [Effexor XR] 75 mg PO DAILY 07/14/21 12/11/21 buPROPion SR [Wellbutrin SR] 100 mg PO BID 07/14/21 12/11/21 busPIRone HCL 15 mg PO BID 07/14/21 12/11/21 Nicotine 14Mg/24Hr Patch [Habitrol] 1 patch TRANSDERM DAILY PRN 12/05/21 12/11/21 Previous Rx's Medication Instructions Recorded DULoxetine HCL [Cymbalta] 60 mg PO DAILY 30 Days 12/10/21 QUEtiapine [SEROquel] 100 mg PO HS 30 Days tab 12/10/21 busPIRone HCl [Buspar] 20 mg PO TID 30 Days tab 12/10/21 Allergies Allergy/AdvReac Type Severity Reaction Status Date / Time No Known Allergies Allergy Verified 12/11/21 13:52 Review of Systems ROS Statement: Those systems with pertinent positive or pertinent negative responses have been documented in the HPI. ROS Other: All systems not noted in ROS Statement are negative. Past Medical History Past Medical History: COPD, Hyperlipidemia, Hypertension Additional Past Medical History / Comment(s): Depression, alcoholism, backpain,edentulous History of Any Multi-Drug Resistant Organisms: None Reported Past Surgical History: Appendectomy Past Anesthesia/Blood Transfusion Reactions: No Reported Reaction Past Psychological History: Anxiety, Depression, Panic Disorder Smoking Status: Current every day smoker Past Alcohol Use History: Abuse, Daily, Heavy Past Drug Use History: Marijuana - Past Family History Father Family Medical History: Unable to Obtain Mother Family Medical History: Unable to Obtain General Exam - General Exam Comments Initial Comments: This is a well-developed well-nourished awake alert oriented 3 male with the smell of alcohol conjoiners on his breath Limitations: no limitations General appearance: alert Head exam: Present: atraumatic, normocephalic, normal inspection Eye exam: Present: normal appearance, PERRL, EOMI. Absent: scleral icterus, conjunctival injection, periorbital swelling ENT exam: Present: mucous membranes dry Neck exam: Present: normal inspection. Absent: tenderness, meningismus, lymphadenopathy Respiratory exam: Present: normal lung sounds bilaterally. Absent: respiratory distress, wheezes, rales, rhonchi, stridor Cardiovascular Exam: Present: regular rate, normal rhythm, normal heart sounds. Absent: systolic murmur, diastolic murmur, rubs, gallop, clicks GI/Abdominal exam: Present: soft, normal bowel sounds. Absent: distended, tenderness, guarding, rebound, rigid Extremities exam: Present: normal inspection, full ROM, normal capillary refill. Absent: tenderness, pedal edema, joint swelling, calf tenderness Back exam: Present: normal inspection Neurological exam: Present: alert, oriented X3, CN II-XII intact Psychiatric exam: Present: depressed, flat affect, suicidal ideation Skin exam: Present: warm, dry, intact, normal color. Absent: rash Course Vital Signs 12/11/21 12:30 Temperature 97.7 F Pulse Rate 71 Respiratory 16 Rate Blood Pressure 110/71 O2 Sat by Pulse 100 Oximetry - Reevaluation(s) Reevaluation #1: 12/11/21 13:21 The patient medically cleared for psychiatric evaluation Medical Decision Making - Medical Decision Making Patient was evaluated by the EPS service and will be admitted for inpatient evaluation and treatment Disposition Clinical Impression: Suicidal ideation, Depression, Alcohol abuse Disposition: TRANSFER TO PSYCH HOSP/UNIT Condition: Stable Referrals: None,Stated [Primary Care Provider] - 1-2 days
[2021-12-11 19:07] LABS: Amphetamine Screen,Urine Not Detected (NotDetected); Barbiturate Screen,Urine Not Detected (NotDetected); Benzodiazepines Screen,Urine Detected (NotDetected); Cocaine Screen,Urine Not Detected (NotDetected); Methadone Screen, Urine Not Detected (NotDetected); Opiate Screen,Urine Not Detected (NotDetected); Oxycodone Screen, Urine Not Detected (NotDetected); Phencyclidine Screen,Urine Not Detected (NotDetected); Tricyclic Antidepressant,Urine Not Detected (NotDetected); Urn Cannabinoid Scrn Detected (NotDetected)
[2021-12-11] MEDS ORDERED: HALOPERIDOL LACTATE 5 MG/ML 1 ML VIAL IM PRN (20:06)
[2021-12-11] MEDS ORDERED: MAGNESIUM HYDROXIDE 2,400 MG/10 ML CUP PO PRN (20:06)
[2021-12-11] MEDS ORDERED: MAG HYDROX/AL HYDROX/SIMETH 30 ML CUP PO PRN (20:06)
[2021-12-11] MEDS ORDERED: NICOTINE 14MG/24HR PATCH TRANSDERM PRN (20:09)
[2021-12-11] MEDS ORDERED: LORazepam 2 MG/ML INJ IM PRN (20:11)
[2021-12-11] MEDS ORDERED: NON FORMULARY DRUG (Buspirone Hcl [Buspirone Hcl] 15 MG Tablet) PO SCH (21:00)
[2021-12-11] MEDS ORDERED: QUEtiapine 100 MG TAB PO SCH (21:00)
[2021-12-11] MEDS ORDERED: busPIRone HCl 10 MG TAB PO SCH (22:00)
[2021-12-11] MEDS ORDERED: busPIRone HCl 5 MG TAB PO SCH (22:00)
[2021-12-11] MEDS: busPIRone HCl 5 MG TAB PO SCH (22:05)
[2021-12-11] MEDS: buPROPion SR 100 MG TABLET.ER PO SCH (22:33)
--- NOTE | 2021-12-12 01:54 | P.PN ---
Progress Note - Text Progress Note Date: 12/12/21 notified by RN about this nEW ADMISSION but patient sleeping at this time
[2021-12-12] MEDS: buPROPion SR 100 MG TABLET.ER PO SCH ×2 (08:42→20:45)
[2021-12-12] MEDS: busPIRone HCl 5 MG TAB PO SCH ×2 (08:42→20:46)
[2021-12-12] MEDS: VENLAFAXINE HCL ER 75 MG CAP PO SCH (08:42)
[2021-12-12] MEDS: NICOTINE 14MG/24HR PATCH TRANSDERM SCH (08:42)
[2021-12-12] MEDS: DULoxetine HCL 60 MG CAPSULE.DR PO SCH (08:42)
[2021-12-12] MEDS: ACETAMINOPHEN TAB 325 MG TAB PO PRN ×2 (09:38→16:20)
[2021-12-12] MEDS: ALBUTEROL HFA INHALER INHALATION PRN ×2 (09:55→16:23)
[2021-12-12 09:56] LABS: Basophils # (A) 0.1 k/uL (0-0.2); Basophils % (A) 1 %; Eosinophils # (A) 0.2 k/uL (0-0.7); Eosinophils % (A) 4 %; HCT 46.1 % (39.0-53.0); HGB 15.2 gm/dL (13.0-17.5); Lymphocytes # (A) 1.4 k/uL (1.0-4.8); Lymphocytes % (A) 21 %; MCH 32.6 pg (25.0-35.0); MCHC 32.9 g/dL (31.0-37.0); MCV 99.1 fL (80.0-100.0); Mean Platelet Volume 8.5; Monocytes # (A) 0.4 k/uL (0-1.0); Monocytes % (A) 6 %; Neutrophils # (A) 4.5 k/uL (1.3-7.7); Neutrophils % (A) 67 %; Platelet Count 233 k/uL (150-450); RBC 4.66 m/uL (4.30-5.90); RDW 12.2 % (11.5-15.5); WBC 6.7 k/uL (3.8-10.6)
[2021-12-12 10:08] LABS: ALT 36 U/L (4-49); AST 42 U/L (17-59); African American GFR (CKD) >90 (>60 ml/min/1.73 sqM); Albumin 4.6 g/dL (3.5-5.0); Alkaline Phosphatase 62 U/L (38-126); Anion Gap 11 mmol/L; Blood Urea Nitrogen 16 mg/dL (9-20); Carbon Dioxide 26 mmol/L (22-30); Chloride 101 mmol/L (98-107); Glucose 171 mg/dL (74-99); Non-African American GFR(CKD) 78 (>60 ml/min/1.73 sqM); Potassium 4.4 mmol/L (3.5-5.1); Sodium 138 mmol/L (137-145); Total Bilirubin 0.6 mg/dL (0.2-1.3); Total Protein 7.8 g/dL (6.3-8.2)
[2021-12-12] MEDS: LORazepam 1 MG TAB PO PRN (11:44)
--- NOTE | 2021-12-12 16:32 | P.HPIM ---
History of Present Illness H&P Date: 12/12/21 56-year-old male with past medical history of hypertension or alcohol use admitted to the hospital for suicidal thoughts Not complaining of any chest pain or shortness of breath Constitutional: No acute distress, conversant, pleasant Eyes: Anicteric sclerae, moist conjunctiva, no lid-lag PERRLA ENMT: NC/AT Oropharynx clear, no erythema, exudates Neck: Supple, FROM, no masses, or JVD No carotid bruits No thyromegaly Lungs: Clear to auscultation Clear to percussion Normal respiratory effort, no accessory muscle use Cardiovascular: Heart regular in rate and rhythm, No murmurs, gallops, or rubs No peripheral edema Abdominal: Soft Nontender, no guarding, rebound or rigidity Abdomen moving with respiration Normoactive bowel sounds No hepatomegaly, No splenomegaly No palpable mass No abdominal wall hernia noted Skin: Normal temperature, tone, texture, turgor No induration No subcutaneous nodules No rash, lesions No ulcers Extremities: No digital cyanosis No clubbing Pedal pulses intact and symmetrical Radial pulses intact and symmetrical Normal gait and station No calf tenderness Psychiatric:Alert and oriented to person, place and time Appropriate affect Intact judgement Neuro: Muscles Strength 5/5 in all 4 extremities Sensation to light touch grossly present throughout Cranial nerves II-XII grossly intact No focal sensory deficits Suicidal Hypertension continue to monitor Alcohol use Past Medical History Past Medical History: COPD, Hyperlipidemia, Hypertension Additional Past Medical History / Comment(s): Depression, alcoholism, backpain,edentulous History of Any Multi-Drug Resistant Organisms: None Reported Past Surgical History: Appendectomy Past Anesthesia/Blood Transfusion Reactions: No Reported Reaction Past Psychological History: Anxiety, Depression, Panic Disorder Smoking Status: Current every day smoker Past Alcohol Use History: Abuse, Daily, Heavy Additional Past Alcohol Use History / Comment(s): Has ETOH Tether states less than year about 8 months sober. Past Drug Use History: Marijuana Additional Drug Use History / Comment(s): Daily use - Past Family History Father Family Medical History: Unable to Obtain Mother Family Medical History: Unable to Obtain Medications and Allergies Home Medications Medication Instructions Recorded Confirmed Type Albuterol Sulfate [Proair Hfa] 1 puff INHALATION RT-Q4H PRN 07/14/21 12/11/21 History Venlafaxine HCl [Effexor XR] 75 mg PO DAILY 07/14/21 12/11/21 History buPROPion SR [Wellbutrin SR] 100 mg PO BID 07/14/21 12/11/21 History busPIRone HCL 15 mg PO BID 07/14/21 12/11/21 History Nicotine 14Mg/24Hr Patch [Habitrol] 1 patch TRANSDERM DAILY PRN 12/05/2111/24 History DULoxetine HCL [Cymbalta] 60 mg PO DAILY 30 Days 12/10/21 12/11/21 Rx QUEtiapine [SEROquel] 100 mg PO HS 30 Days tab 12/10/21 12/11/21 Rx busPIRone HCl [Buspar] 20 mg PO TID 12/11/21 12/11/21 History Allergies Allergy/AdvReac Type Severity Reaction Status Date / Time No Known Allergies Allergy Verified 12/11/21 13:52 Physical Exam Vitals: Vital Signs Temp Pulse Pulse Resp BP BP Pulse Ox 12/12/21 06:47 97.7 F 97 115/81 96 12/11/21 20:28 97.9 F 74 18 128/78 99 12/11/21 20:22 97.5 F L 78 18 141/91 Results CBC & Chem 7: 12/12/21 09:31 12/12/21 09:31 Labs: Abnormal Lab Results - Last 24 Hours (Table) 12/11/21 12/12/21 Range/Units 18:36 09:31 Glucose 171 H (74-99) mg/dL U Benzodiazepines Scrn Detected H (NotDetected) U Marijuana (THC) Screen Detected H (NotDetected) Thrombosis Risk Factor Assmnt - Choose All That Apply Any of the Below Risk Factors Present?: No Other Risk Factors: No Other congenital or acquired thrombophilia - If yes, enter type in comment: No Thrombosis Risk Factor Assessment Level: Very Low Risk
--- NOTE | 2021-12-12 17:47 | P.HP ---
Psychiatric H&P - . H&P Date: 12/12/21 History & Physical: Allergies Allergy/AdvReac Type Severity Reaction Status Date / Time No Known Allergies Allergy Verified 12/11/21 13:52 Vital Signs Temp 97.7 F 12/12/21 06:47 Pulse 97 12/12/21 06:47 Resp 18 12/11/21 20:28 BP 115/81 12/12/21 06:47 Pulse Ox 96 12/12/21 06:47 Intake & Output 12/11/21 12/12/21 12/12/21 18:59 06:59 18:59 Weight 72.575 kg 72.575 kg Laboratory Last Values WBC 6.7 k/uL (3.8-10.6) 12/12/21 09:31 RBC 4.66 m/uL (4.30-5.90) 12/12/21 09:31 Hgb 15.2 gm/dL (13.0-17.5) 12/12/21 09:31 Hct 46.1 % (39.0-53.0) 12/12/21 09:31 MCV 99.1 fL (80.0-100.0) 12/12/21 09:31 MCH 32.6 pg (25.0-35.0) 12/12/21 09:31 MCHC 32.9 g/dL (31.0-37.0) 12/12/21 09:31 RDW 12.2 % (11.5-15.5) 12/12/21 09:31 Plt Count 233 k/uL (150-450) 12/12/21 09:31 MPV 8.5 12/12/21 09:31 Neutrophils % 67 % 12/12/21 09:31 Lymphocytes % 21 % 12/12/21 09:31 Monocytes % 6 % 12/12/21 09:31 Eosinophils % 4 % 12/12/21 09:31 Basophils % 1 % 12/12/21 09:31 Neutrophils # 4.5 k/uL (1.3-7.7) 12/12/21 09:31 Lymphocytes # 1.4 k/uL (1.0-4.8) 12/12/21 09:31 Monocytes # 0.4 k/uL (0-1.0) 12/12/21 09:31 Eosinophils # 0.2 k/uL (0-0.7) 12/12/21 09:31 Basophils # 0.1 k/uL (0-0.2) 12/12/21 09:31 Sodium 138 mmol/L (137-145) 12/12/21 09:31 Potassium 4.4 mmol/L (3.5-5.1) 12/12/21 09:31 Chloride 101 mmol/L (98-107) 12/12/21 09:31 Carbon Dioxide 26 mmol/L (22-30) 12/12/21 09:31 Anion Gap 11 mmol/L 12/12/21 09:31 BUN 16 mg/dL (9-20) 12/12/21 09:31 Creatinine 1.07 mg/dL (0.66-1.25) 12/12/21 09:31 Est GFR (CKD-EPI)AfAm >90 (>60 ml/min/1.73 sqM) 12/12/21 09:31 Est GFR (CKD-EPI)NonAf 78 (>60 ml/min/1.73 sqM) 12/12/21 09:31 Glucose 171 mg/dL (74-99) H 12/12/21 09:[address] Glu mg/dL 113 12/12/21 09:31 Hemoglobin A1c 5.6 % (0.0-6.0) 12/12/21 09:31 Calcium 10.0 mg/dL (8.4-10.2) 12/12/21 09:31 Total Bilirubin 0.6 mg/dL (0.2-1.3) 12/12/21 09:31 AST 42 U/L (17-59) 12/12/21 09:31 ALT 36 U/L (4-49) 12/12/21 09:31 Alkaline Phosphatase 62 U/L (38-126) 12/12/21 09:31 Total Protein 7.8 g/dL (6.3-8.2) 12/12/21 09:31 Albumin 4.6 g/dL (3.5-5.0) 12/12/21 09:31 TSH 1.100 mIU/L (0.465-4.680) 12/12/21 09:31 Urine Opiates Screen Not Detected (NotDetected) 12/11/21 18:36 Ur Oxycodone Screen Not Detected (NotDetected) 12/11/21 18:36 Urine Methadone Screen Not Detected (NotDetected) 12/11/21 18:36 Ur Propoxyphene Screen Not Detected (NotDetected) 12/11/21 18:36 Ur Barbiturates Screen Not Detected (NotDetected) 12/11/21 18:36 U Tricyclic Antidepress Not Detected (NotDetected) 12/11/21 18:36 Ur Phencyclidine Scrn Not Detected (NotDetected) 12/11/21 18:36 Ur Amphetamines Screen Not Detected (NotDetected) 12/11/21 18:36 U Methamphetamines Scrn Not Detected (NotDetected) 12/11/21 18:36 U Benzodiazepines Scrn Detected (NotDetected) H 12/11/21 18:36 Urine Cocaine Screen Not Detected (NotDetected) 12/11/21 18:36 U Marijuana (THC) Screen Detected (NotDetected) H 12/11/21 18:36 Coronavirus (PCR) Not Detected (Not Detectd) 12/11/21 19:01 12/12/21 17:29 Psychiatric H/P He was recently discharged from Inpatient unit . Dr. Welch provided care for him prior to his discharge on Dec 10, 2021. I had a team discussion with regard to housing stability Chief complaint; suicidal ideation and housing problem HPI> his previous history was documented in the prior notes. He had a fixed suicidal ideation impulsive and realted to his son and two brothers who successfully from suicidal attempts. He had flashbacks form the past and found it difficult to adapt with no social support. He has lost contact with his sisters. When he was discharged, he wandered around in the communty for almost the whole day in the snow in a aimlessly fashion. He may have relapsed on smoking cannabis and forgot to fill his Rx: he was tried on different classes of Rx including 1. Seroquel 100 mg po qhs 2. Cymbalta 3. Bupropion 4. Buspar 5. effexor He showed up at the emerg. threatening to kill himself with a pistol if available. He was admited under emergency and did not have any specific outstanding medical problem. When he was re-indterviewed, he was more settled and was able to give a coherent HPI outlining why he would like to be re- admitted for longer period of stay . He did not display any frostbite symptoms and vitals were stable. Cannabis screen was positive Past Psychiatrc History: Long standing history of Depression and PTSD He was involved with community mental Health agencies and had multiple psychiatric admissions in the past. He did not act out recnelty on his latent suicidal ideation. He experienced episodic flashbacks of his past and felt stigmatized as a chronic mentally ill patients. schizo-affective disorder will be in the differential Past substance use : he did not see cannabis as his problem interfering with the benefits of the Rx. He was uncertain whether the current medication regimen has worked for him to prolonged period of time Past psychosoical history: As documented in previously, He has lost his close social support network. He mentioned he may have a few friends related to the yazidism groups. He has not been gainfully employed for quite osme time. MSE: he was dressed appropriately. maintaining good eye contact. He was more relaxed with minimal irritability. He was calm non-agitated and ruminated at times over his fleeting suicidal ideatioin. HE was not obsessed with any gun or violence theme. He admitted to his fixed idea of wanting to end his life but not at the present moment if his housing problem could be solved. He denied any hallucinatioins or delusionis. Cognition: oriented. marginal insight and no memory deficits DIagnosis: Recurrent Major Depressive Disorder, Cannabis disorder, rule out schizo-affective disorder. PTSD . Management Plan 1. Readmit pt for further Rx ; he would be optimized for augmentation . eg Seroquel to 100 mg to 150 mg po 2. Work with to stabilize his housing . 3. explore social network in the community. 4. [facility] case management would be required to break the cycle of repeated admission 5. Monitor suicidal ideation recurrence.
[2021-12-12] MEDS: QUEtiapine 50 MG TAB PO SCH (20:46)
[2021-12-13] MEDS: NICOTINE 14MG/24HR PATCH TRANSDERM SCH (08:02)
[2021-12-13] MEDS: busPIRone HCl 5 MG TAB PO SCH ×2 (08:02→20:06)
[2021-12-13] MEDS: DULoxetine HCL 60 MG CAPSULE.DR PO SCH (08:02)
[2021-12-13] MEDS: VENLAFAXINE HCL ER 75 MG CAP PO SCH (08:02)
[2021-12-13] MEDS: buPROPion SR 100 MG TABLET.ER PO SCH ×2 (08:03→20:53)
[2021-12-13 09:14] LABS: Chol/HDL Ratio 2.44 Ratio; LDL Cholesterol,Calculated 72.2 mg/dL (0.0-131.0)
[2021-12-13] MEDS: LORazepam 1 MG TAB PO PRN (11:15)
[2021-12-13] MEDS: ACETAMINOPHEN TAB 325 MG TAB PO PRN (11:15)
--- NOTE | 2021-12-13 19:17 | P.PN ---
Subjective Progress Note Date: 12/13/21 Principal diagnosis: Progress note He was seen in the hallway. he Greeted me appropriately and fit well with the social group. I reassured him that discharge planning would be organized better next week so that stable housing would be reassured. He was less worried and felt more secured. No hallucinatioins No agitated. Mood slightly blunted. otherwise insight judgment has improved. Plan: [place] tune Rx; Discharge sW assitance and expertise to be discussed at team meeting . Currenlty required in patient hosptialization. HE was uanware of the exposure to carrillo bite when he wandered the [place] area for prolonged time. Suicidal ideation to be monitored. Antypical to be increased Objective - Vital Signs Vital signs: Vital Signs Temp 98.1 F 12/13/21 07:06 Pulse 80 12/13/21 07:06 Resp 16 12/13/21 07:06 BP 131/78 12/13/21 07:06 Pulse Ox 98 12/13/21 07:06 Intake & Output 12/13/21 12/13/21 12/14/21 06:59 18:59 06:59 Weight 70 kg - Labs CBC & Chem 7: 12/12/21 09:31 12/12/21 09:31 Labs: Abnormal Lab Results - Last 24 Hours (Table) 12/12/21 Range/Units 09:31 HDL Cholesterol 68.40 H (40.00-60.00) mg/dL
[2021-12-13] MEDS: QUEtiapine 50 MG TAB PO SCH (20:07)
[2021-12-14] MEDS: DULoxetine HCL 60 MG CAPSULE.DR PO SCH (08:48)
[2021-12-14] MEDS: busPIRone HCl 5 MG TAB PO SCH ×2 (08:48→20:47)
[2021-12-14] MEDS: buPROPion SR 100 MG TABLET.ER PO SCH ×2 (08:48→20:47)
[2021-12-14] MEDS: VENLAFAXINE HCL ER 75 MG CAP PO SCH (08:49)
[2021-12-14] MEDS: NICOTINE 14MG/24HR PATCH TRANSDERM SCH (08:49)
[2021-12-14] MEDS: ALBUTEROL HFA INHALER INHALATION PRN (10:11)
--- NOTE | 2021-12-14 18:05 | P.PN ---
Subjective Progress Note Date: 12/14/21 Principal diagnosis: Progress note He was seen today endorsing episodic flashbacks of violent suicidal deaths of her family : son and brohers. HE recalled his relapse may be related to anniversary reaction of the of her family. HE gained some insight. He requested for Buspar to be increased from bid to tid. His antidepressant: Effexor to be icnreased to 150 mg po and his Cymbalta would continue to be at 60 mg po od. He had diiffculty in sleep and benefited from low dosage of Seroquel 150 mg po qhs. He was looking for hosuing resources and would sign himself to transitional program for which he would be staying for 30 days before he finds more stable housing Dignosis: PTSD and MDD improved. Intermittent suicidal image flashbacks. Discharge early this week Objective - Vital Signs Vital signs: Vital Signs Temp 97.2 F L 12/14/21 05:57 Pulse 96 12/14/21 05:57 Resp 18 12/14/21 05:57 BP 115/80 12/14/21 05:57 Pulse Ox 98 12/14/21 05:57 Intake & Output 12/13/21 12/14/21 12/14/21 18:59 06:59 18:59 Weight 70 kg - Labs CBC & Chem 7: 12/12/21 09:31 12/12/21 09:31
[2021-12-14] MEDS: QUEtiapine 50 MG TAB PO SCH (20:47)
[2021-12-15 06:47] VITALS: RESP 16
[2021-12-15] MEDS: busPIRone HCl 5 MG TAB PO SCH ×3 (08:43→20:54)
[2021-12-15] MEDS: DULoxetine HCL 60 MG CAPSULE.DR PO SCH (08:43)
[2021-12-15] MEDS: NICOTINE 14MG/24HR PATCH TRANSDERM SCH (08:43)
[2021-12-15] MEDS: buPROPion SR 100 MG TABLET.ER PO SCH ×2 (08:43→22:21)
[2021-12-15] MEDS ORDERED: VENLAFAXINE HCL ER 150 MG CAP PO SCH (09:00)
[2021-12-15] MEDS: ACETAMINOPHEN TAB 325 MG TAB PO PRN (10:29)
--- NOTE | 2021-12-15 16:01 | P.DS ---
Providers Date of admission: 12/11/21 20:02 Expected date of discharge: 12/16/21 Attending physician: Victor M Mckoy MD Discharge summary He was seen today and followed regularly on [facility] unit since his admission. He had recurrent flashbacks of the three violent familial suicidal attempts : his two brothers and son from gun shoot and overdose. His son in resulting in his previoius admission. He was ill-motivated to seek usp when he was discharge in mid-week and was re-admitted within 36 hrs after he was wandering in the cold winter in the neighborhood of [place]. area. He approached [facility] with suicidal threate "shooting himself with a gun/pistol if one is available". He was readmitted and adapted readily to the unit milieu. He was highly active in socail groups and talked at some length abut his past: his dysfunctional family, his unstable housing , his need for oysterman rehab. He has a few years of abstinence from Alcohol and found the self-help AA very positive experience in fostering social support as he has very few close family friends. He was proud of initiating his smoking cessation. He has been to [facility] before and wanted to be re-integrated to the therapeutic community. He re-connected to [facility] and found a congenial milieu about [place] from [place] . [place] protcol as the transition from acute psychiatric unit to usp recovery focus. His suicidality has been resolved. He recognized his suicidal ideations can be triggered by environmental signals and interpersonal losses. I spent time explaining to him the medication regimen: I preferred for not to take too many psychotropic Rx. however, he was alerady started on 1. Effexor to be icnreasing to 150 mg 2. Buspar to be increased to 15 mg po bid for hi sanxiety and PTSD 3. Cymbalta 60 mg po qhs. 4. GABAPentin for decreasing his craving for Alcohol 5. Low dosage of Seroquel 100 mg po qhs He would be discharged early on Dec 16 for him to connect to [facility] en route to the residential recovery facility Discharge diagnosis : PTSD MDD recurrent, unipolar moderate severity. 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 Consults: 12/11/21 20:06 Consult Physician Routine Consulting Provider: [facility] Consult Reason/Comments: medical management Do you want consulting provider notified?: Yes Primary care physician: Stated None Patient Condition at Discharge: Stable Plan - Discharge Summary Discharge Rx Participant: No New Discharge Prescriptions: New Venlafaxine HCl ER [Effexor XR] 150 mg PO DAILY 30 Days #30 buPROPion SR [Wellbutrin SR] 100 mg PO BID 30 Days #60 tablet Continue busPIRone HCl [Buspar] 20 mg PO TID 30 Days #90 tab DULoxetine HCL [Cymbalta] 60 mg PO DAILY 30 Days #30 cap QUEtiapine [SEROquel] 100 mg PO HS 30 Days #30 tab Discontinued buPROPion SR [Wellbutrin SR] 100 mg PO BID Nicotine 14Mg/24Hr Patch [Habitrol] 1 patch TRANSDERM DAILY PRN PRN Reason: Nicotine Cravings Albuterol Sulfate [Proair Hfa] 1 puff INHALATION RT-Q4H PRN PRN Reason: Shortness Of Breath busPIRone HCL 15 mg PO BID Venlafaxine HCl [Effexor XR] 75 mg PO DAILY Discharge Medication List DULoxetine HCL [Cymbalta] 60 mg PO DAILY 30 Days #30 cap 12/15/21 [Rx] QUEtiapine [SEROquel] 100 mg PO HS 30 Days #30 tab 12/15/21 [Rx] Venlafaxine HCl ER [Effexor XR] 150 mg PO DAILY 30 Days #30 12/15/21 [Rx] buPROPion SR [Wellbutrin SR] 100 mg PO BID 30 Days #60 tablet 12/15/21 [Rx] busPIRone HCl [Buspar] 20 mg PO TID 30 Days #90 tab 12/15/21 [Rx] Follow up Appointment(s)/Referral(s): [facility] [Outside] - 12/16/21 8:45 am (Will follow up with [facility] upon d/c from [facility]. ) None,Stated [Primary Care Provider] - 1-2 days Activity/Diet/Wound Care/Special Instructions: Activity and diet as tolerated. Avoid the use of street drugs and alcohol. Take all medications as prescribed. When you are in need of refills on your medications please contact your medical provider and/or outpatient psychiatrist to have this done. Please go to scheduled outpatient appointment for aftercare t reatment. If symptoms return or become worse, call the crisis line at and/or go to the nearest emergency room for evaluation
[2021-12-15] MEDS: QUEtiapine 50 MG TAB PO SCH (20:54)
[2021-12-16 07:00] VITALS: BP 139/87; PULSE 81; TEMP 97.9
== END 2021-12-16 06:58 | disposition home or self-care (01) | DRG 885 ==
LOC: EC 12:25 → 3MHU 20:02
PROVIDERS: ADMIT Psychiatry & Neurology Psychiatry; ATTEND Psychiatry & Neurology Psychiatry
DX: F33.9 Major depressive disorder, recurrent, unspecified (principal); R45.851 Suicidal ideations; F41.0 Panic disorder [episodic paroxysmal anxiety]; F10.21 Alcohol dependence, in remission; Z87.891 Personal history of nicotine dependence; M54.9 Dorsalgia, unspecified; E78.5 Hyperlipidemia, unspecified; F43.10 Post-traumatic stress disorder, unspecified; I10 Essential (primary) hypertension; J44.9 Chronic obstructive pulmonary disease, unspecified; Z79.899 Other long term (current) drug therapy; Z20.822 Contact with and (suspected) exposure to COVID-19; Z90.49 Acquired absence of other specified parts of digestive tract
CPT/HCPCS: 80053; 80061; 80306; 82075; 83036; 84443; 85025; 87635; 99285